=== PATIENT | female | born 1940 | race African-American/Black ===

== ENCOUNTER 2020-09-26 18:51 | Inpatient (IN) | payer OTHER ==
[2020-09-26] MEDS ORDERED: ALBUTEROL 2.5 MG/3 ML NEB SOL ONE (19:44)
[2020-09-26] MEDS: ALBUTEROL 2.5 MG/3 ML NEB SOL NEB SCH (19:45)
--- NOTE | 2020-09-26 20:37 | HP ---
Date of Admission: 09/26/2020 Chief Complaint: Feeling weak, tired, and short of breath. History Of Present Illness: This is an 80-year-old pleasant female patient, who was brought into my office earlier today by family member and the patient has history of asthma. She recently saw Dr. Cooper and he started her on Trelegy inhaler, which she has not started using it and today when she saw me at office, she informed me she did not know how to use it, so I did teach her actually how to use this inhaler and advised her to rinse mouth with water after using it. In fact, she used her first dose of this inhaler at the office today. At office today, her blood pressure was on the low side and she was instructed to discontinue her valsartan and not to take any antihypertensive medication today. We will start rest of the blood pressure medication as of tomorrow, but not to take valsartan anymore. She was leaving office. While she was walking, she felt weak and tired, and then when she went home, her condition got worse. With any attempt to get up or move around, she was very weak, tired, short of breath to the extent that family was really concerned about worsening symptoms, so I was contacted and decision was made to admit her to hospital for further evaluation and management of this problem. I did go back to hospital to check on her while she was in the emergency room this evening. No new complaints reported after she left my office today. No vomiting. No diarrhea. No fever or chills. Allergies: NO KNOWN ALLERGIES. Medications: ProAir inhaler 2 puffs 4 times a day as needed, Trelegy inhaler 1 puff by mouth daily, Xarelto 20 mg p.o. daily in the evening, atorvastatin 20 mg p.o. at bedtime, amlodipine 5 mg 2 times a day, carvedilol 3.125 mg p.o. 2 times a day, escitalopram 10 mg p.o. daily, famotidine 40 mg at bedtime, and Fosamax 70 mg p.o. once a week, Caltrate plus D 1 tablet by mouth 2 times a day. Review of Systems: Cardiovascular: As mentioned above. Respiratory: As mentioned above. All other systems reviewed and negative. Past Medical History: Significant for asthma, hypertension, atrial fibrillation, hyperlipidemia, gastroesophageal reflux disease, osteoarthritis, osteopenia. Past Surgical History: Cholecystectomy and tubal ligation. Family History: Father , details unknown. Mother , had lung cancer. Daughter with history of breast cancer. Social History: Negative for smoking or alcohol use. Physical Examination: Vital Signs: Earlier today at our office, blood pressure 93/59, pulse 61, respiratory rate 16, temperature 97, weight 154.4 pounds, height 65 inches. General: Awake, alert, oriented, not in distress. HEENT: Head atraumatic, normocephalic. Conjunctivae nonerythematous. Sclerae white. Mouth, no thrush or edema noted. Ears/Nose, no mass, lesion, discharge noted. Neck: Supple. No JVD, lymph nodes, bruit, thyromegaly noted. Lungs: Bilateral good equal air entry. Clear to auscultation. No rhonchi. No rales. Heart: Normal heart sounds. Presence of systolic murmur. No gallop. Abdomen: Soft. Bowel sounds normal. No guarding, rigidity, tenderness, mass, hepatosplenomegaly, distention, or bruit noted. Extremities: No leg edema. No calf tenderness. Skin: No rash, ulcer, cellulitis. Lymphatics: No lymph node enlargement in neck, supraclavicular, infraclavicular region. Neuro: No focal neurological deficit. Chest: Unremarkable. External Genitalia: Deferred. Rectal: Deferred. Laboratory Data: WBC 6.6, hemoglobin 4.2, platelets 242. Sodium 145, potassium 3.9, chloride 113, bicarb 27, BUN 34, creatinine 1.15, glucose 97. Liver function tests unremarkable. Chest x-ray shows no acute changes. Impression: 1. Severe anemia. 2. Dyspnea. 3. Hypertension. 4. Moderate persistent asthma. 5. Chronic atrial fibrillation. 6. Chronic anticoagulation therapy. 7. Hyperlipidemia. 8. Gastroesophageal reflux disease. 9. Osteoarthritis, multiple sites. 10. Osteopenia. Plan: We will admit the patient to hospital for further evaluation and management of this problem. The patient is appropriate for inpatient and is expected to spend 2 midnights in hospital. Her hemoglobin was 12.2 on 08/14/2020 and she has not reported any signs or symptoms of GI bleeding. Will get stool occult test and she will need EGD and colonoscopy to look for underlying cause of this severe anemia as I suspect it is due to GI bleeding and very likely upper GI bleeding. Her Xarelto will need to discontinued from now on. Home medications will be continued per order. We will not give any antihypertensive medication at this point. We will plan to get an echocardiogram with Doppler tomorrow. We will give albuterol nebulizer treatment, and details and plan of treatment discussed with the patient. RENETTA/CRISTIN Voice ID: [id number] IMER
--- NOTE | 2020-09-26 20:57 | RAD REPORT ---
EXAM DESCRIPTION: RAD - Chest Single View - 09/26/2020 8:08 pm CLINICAL HISTORY: dyspnea Chest pain. COMPARISON: Chest Single View dated 09/16/2016; CHEST PA AND LAT 2 VIEW dated 11/30/2015; CHEST PA AN D LAT 2 VIEW dated 05/11/2015; CHEST SINGLE VIEW dated 09/11/2014 FINDINGS: Portable technique limits examination quality. The lungs are grossly clear. The heart is normal in size. No displaced fractures. IMPRESSION: No acute intrathoracic process suspected.
[2020-09-26] MEDS ORDERED: FAMOTIDINE 20 MG TAB PO SCH (21:00)
--- NOTE | 2020-09-26 21:44 | ER ---
Nurse's Notes [facility] Name: Jo Dos Santos Age: 80 yrs Sex: Female : 1940 Arrival Date: 09/26/2020 Time: 18:56 Bed Direct Admit Private MD: Ana Awan C Diagnosis: Dyspnea Presentation: 09/26 21:37 Note this pt is a direct admit from . sg Historical: - Allergies: 21:37 No Known Allergies; sg - PMHx: 21:37 DVT; GERD; Hypertension; High Cholesterol; sg - PSHx: 21:37 Tubal ligation; sg Assessment: 19:40 Reassessment: pt refusing COVID 19 test at this time. pt family at bedside educating sg and encouraging the patient for COVID swab and admission, pt continues to refuse. 19:58 Reassessment: pt continues to refuse COVID 19 swab at this time, pt states having been sg lied to by family members for the testing. pt educated on importance of COVID test for admission. pt allows me to swab her at this time. 20:15 Reassessment: pt refusing lab draw and IV start for direct admission. pt states " you sg done that swab, but you aint coming at me with no needles young man." pt refuses blood draw until admission. 21:34 Reassessment: negative covid per [place] outside lab. sg 21:36 Reassessment: pt and pt family updated on COVID swabs, awaiting a bed assignment at this time per Tamika RIVER. Vital Signs: 19:16 BP 156 / 80; Pulse 77; Resp 16; Pulse Ox 96% on R/A; sg ED Course: 18:56 Patient arrived in ED. as 18:56 Ana Awan MD is Private Physician. as 19:58 COVID swab sent to lab. sg 21:42 Ana Awan MD is Hospitalizing Provider. sg Administered Medications: No medications were administered Outcome: 21:42 Decision to Hospitalize by Provider. sg 22:00 Admitted to Tele accompanied by tech, family with patient, via wheelchair, room 204, sg with chart, Report called to Lakia RIVER 22:00 Condition: stable 22:00 Instructed on the need for admit, safety practices, Demonstrated understanding of instructions, follow-up care. 22:09 Patient left the ED. ll2 Signatures: Heri Hernández RN RN Tejal Recinos Lacie RN RN ll2 Corrections: (The following items were deleted from the chart) 21:43 21:37 Note this pt is a direct admit from office westley christy
[2020-09-26 23:04] LABS: Absolute Lymphocytes (CBC) 1.4 K/uL (0.7-4.9); Basophils % 1.6 % (0-1.3); Lymphocytes % 20.6 % (15.3-44.8); MPV 7.8 fL (7.6-11.3); RBC Red Blood Cell Count 1.63 M/uL (3.86-4.86)
[2020-09-26 23:06] LABS: Hematocrit 13.4 % (36.0-45.0)
[2020-09-26 23:13] VITALS: BMI 3523.1
[2020-09-26 23:29] LABS: Albumin 2.9 g/dL (3.4-5.0); Bilirubin Total 0.3 mg/dL (0.2-1.0); Magnesium 1.9 mg/dL (1.8-2.4); Potassium 3.9 mmol/L (3.5-5.1); Thyroid Stimulating Hormone 2.11 uIU/mL (0.360-3.740)
[2020-09-27] MEDS ORDERED: NA CHLORIDE 0.9% 250 ML ONE ×3 (02:06→21:59)
[2020-09-27] MEDS: ALBUTEROL 2.5 MG/3 ML NEB SOL NEB SCH ×4 (02:10→19:30)
[2020-09-27] MEDS ORDERED: ESCITALOPRAM 20 MG TAB PO SCH (09:00)
[2020-09-27] MEDS ORDERED: INFLUENZA VACCINE (for 3y+) 0.5 ML DOSE IMVAC ONE (09:00)
[2020-09-27] MEDS ORDERED: PNEUMOCOCCAL VACCINE 0.5 ML IMVAC ONE (09:00)
[2020-09-27] MEDS: PANTOPRAZOLE INJ 80 MG in NA CHLORIDE 0.9% 250 ML IV SCH ×2 (10:56→21:48)
--- NOTE | 2020-09-27 12:39 | PN ---
Date of Progress Note: 09/27/2020 Subjective: The patient was seen this morning for followup. Her family was with her at bedside. Praveen eubanks denies any new complaints this morning. Upon further questioning today, she does admit that lately she has noted her stool to be dark compared to before and she could not tell me for how long that stafford s been going on actually, but she says it has been lately she has seen that change in color. Denies any bright red blood in stool. No abdominal pain. No nausea. No vomiting. Objective: Vital Signs: Reviewed. HEENT: Unremarkable. Lungs: Clear to auscultation. Heart: Sounds normal. Abdomen: Soft. Bowel sounds normal. No guarding, rigidity, tenderness. Extremities: No leg edema. Impression: 1.Severe anemia. 2.Hypertension. 3.Asthma. Plan: The patient's blood pressure will be monitored and we will consider to restart her antihyperte nsive medication at appropriate time. We will give her IV Protonix drip per order. Stool guaiac joseph t was ordered and nurse was instructed to send all the stools for occult blood test. The patient has received 2 units of packed red cells overnight and CardioNet will be given after I saw her this morn ing. After 3 units of blood transfusion, we will monitor her hemoglobin and then make further decisi on about need for further blood transfusion. On exam, there was no sign of any volume overload. The patient and family were made aware of different possibilities for her underlying anemia problem. Praveen eubanks had normal hemoglobin of 12.2 on August 14, 2020. So approximately 5-6 weeks ago, she had normal hemoglobin, so this is acute blood loss anemia on basis of the way she is describing. Clinically, I strongly believe that this is upper GI bleed and she will need to have endoscopy workup done. We do not have any professor of criminal justice application assistant and I will try to contact our professor of criminal justice to see if donell eubanks of them is available or not and all these details were discussed with family. If that is not possi ble, then after the blood transfusion if her condition is stable, then we will plan to discharge her to go home with elective outpatient endoscopy workup to be done next week. The patient was instructe d not to take any anticoagulation therapy anymore and Xarelto to be discontinued permanently. She wa s also instructed not to take any aspirin, Aleve, Motrin, and ibuprofen, none of those medications. So far, she has remained in sinus rhythm and we will just have to monitor for atrial fibrillation. I f that becomes an issue, then we will have to have a discussion regarding Watchman device. RENETTA/MODL Voice ID: [id number] Report ID: [id number]
--- NOTE | 2020-09-27 14:11 | ECHO ---
HEIGHT: 0 ft 5.5 in WEIGHT: 151 lb 9.6 oz DATE OF STUDY: 09/27/[address]: Jesse Awan MD 2-DIMENSIONAL: YES M.MODE: YES DOPPLER: YES COLOR FLOW: YES TDS: PORTABLE: DEFINITY: BUBBLE STUDY: DIAGNOSIS: ATRIAL FIBRILLATION, DYSPNEA CARDIAC HISTORY: CATHERIZATION: NO SURGERY: NO PROSTHETIC VALVE: NO PACEMAKER: NO MEASUREMENTS (cm) DIASTOLIC (NORMALS) SYSTOLIC (NORMALS) IVSd 0.9 (0.6-1.2) LA Diam 3.0 (1.9-4.0) LVEF 71% LVIDd 4.7 (3.5-5.7) LVIDs 2.8 (2.0-3.5) %FS 41% LVPWd 1.1 (0.6-1.2) Ao Diam 2.6 (2.0-3.7) 2 DIMENSIONAL ASSESSMENT: RIGHT ATRIUM: NORMAL LEFT ATRIUM: NORMAL RIGHT VENTRICLE: NORMAL LEFT VENTRICLE: NORMAL TRICUSPID VALVE: MILD TRICUSPID REGURGITATION MITRAL VALVE: MILD MITRAL REGURGITATION PULMONIC VALVE: NORMAL AORTIC VALVE: NORMAL PERICARDIAL EFFUSION: NONE AORTIC ROOT: NORMAL LEFT VENTRICULAR WALL MOTION: NORMAL DOPPLER/COLOR FLOW: SEE BELOW COMMENTS: NORMAL LEFT VENTRICULAR EJECTION FRACTION 55-60% WITH NORMALWALL MOTION. MILD MITRAL REGURGITATION, MILD MITRAL REGURGITATION. MILD PULMONARY HYPERTENSION WITH RIGHT VENTRICULAR SYSTOLIC PRESSURE OF 40-45 mmHg. TECHNOLOGIST: MARIAJOSE WISEMAN
[2020-09-27] MEDS ORDERED: RIVAROXABAN 20 MG TABLET PO SCH (17:00)
[2020-09-27 18:46] LABS: Hematocrit 20.6 % (36.0-45.0)
[2020-09-27] MEDS ORDERED: POTASSIUM CL SA 10 MEQ TAB PO ONE (20:00)
[2020-09-27] MEDS ORDERED: FUROSEMIDE 20 MG/ 2ML VIAL IV ONE (20:58)
[2020-09-28] MEDS: ALBUTEROL 2.5 MG/3 ML NEB SOL NEB SCH ×3 (00:30→07:39)
[2020-09-28] MEDS ORDERED: NA CHLORIDE 0.9% 250 ML ONE ×2 (00:34→04:31)
[2020-09-28] MEDS ORDERED: EPINEPHRINE/PF 1 MG/ML AMP ONE ×2 (08:37→08:39)
[2020-09-28] MEDS ORDERED: ESCITALOPRAM 10 MG TABLETS PO SCH (09:00)
[2020-09-28] MEDS ORDERED: Ringers Lactate 1,000 ML IV ONE (09:08)
[2020-09-28] MEDS ORDERED: propofoL 200 MG/20 ML VIAL IV ONE ×2 (09:20)
[2020-09-28 09:21] LABS: Absolute Lymphocytes (CBC) 1.6 K/uL (0.7-4.9); Basophils % 0.9 % (0-1.3); Hematocrit 32.9 % (36.0-45.0); Lymphocytes % 18.3 % (15.3-44.8); RBC Red Blood Cell Count 3.85 M/uL (3.86-4.86)
[2020-09-28 09:28] LABS: Potassium 4.1 mmol/L (3.5-5.1)
--- NOTE | 2020-09-28 09:40 | ENDO RPT ---
[address], [address] EGD PROCEDURE REPORT EXAM DATE: 09/28/2020 PATIENT NAME: Jo Dos Santos MR#: [id number] BIRTHDATE: 1940 ATTENDING: Asad Rosas Dr STATUS: inpatient - 7 LITHODUPLICATOR OPERATOR: Lyndsey LOPEZ and Hayes Zapien RN INDICATIONS: The patient is a 80 yr old Female here for an EGD due to anemia (hgb 4.2), and melenic bleeding PROCEDURE PERFORMED: EGD with biopsy MEDICATIONS: Per Anesthesia. TOPICAL ANESTHETIC: none CONSENT: The patient understands the risks and benefits of the procedure and understands that these risks include, but are not limited to: sedation, allergic reaction, infection, perforation and/or bleeding. Alternative means of evaluation and treatment include, among others: physical exam, x-rays, and/or surgical intervention. The patient elects to proceed with this endoscopic procedure. DESCRIPTION OF PROCEDURE: During intra-op preparation period all mechanical medical equipment was checked for proper function. Hand hygiene and appropriate measures for infection prevention was taken. Procedure, possible complications, and alternatives including but not limited to the possibility of bleeding, perforation, tear, infection, sepsis, need for surgery, need for blood transfusion, and anesthesia related complications were explained to the patient. After the risks, benefits and alternatives of the procedure were thoroughly explained, Informed consent was verified, confirmed and timeout was successfully executed by the treatment team. The patient was placed in the left lateral position. The patient was anesthetized with topical anesthesia. Through the anesthetized oropharyngeal area, the scope was passed without any difficulty. The [id number] ([id number]) endoscope was introduced through the mouth and advanced to the second portion of the duodenum. Retroflexed views revealed a small hiatal hernia. The gastroscope was then slowly withdrawn and removed. A small hiatal hernia was found Retained food was present in the body of the stomach. Mild gastritis was found in the body and the antrum of the stomach. Multiple biopsies were obtained and sent to pathology. ADVERSE EVENTS: There were no complications. IMPRESSIONS: 1. Small hiatal hernia 2. Moderate amount of retained food in the body >> fundus / antrum of the stomach 3. Mild gastritis in the body and the antrum of the stomach, s/p biopsies RECOMMENDATIONS: 1. await biopsy results 2. acid suppression therapy 3. gastric emptying study 4. colonoscopy REPEAT EXAM: Asad Rosas Dr eSigned: Asad Rosas Dr 09/28/2020 9:40 AM cc: Jesse Awan M.D. CPT CODES: ICD9 CODES: PATIENT NAME: Jo Dos Santos MR#: [id number]
[2020-09-28 09:45] VITALS: O2SAT 100
--- NOTE | 2020-09-28 10:14 | PN ---
Date of Progress Note: 09/28/2020 Subjective: The patient was seen this morning for followup. She was sleeping, easily arousable. Denies any complaints. No cough, no shortness of breath. Objective: Vital Signs: Reviewed. HEENT: Unremarkable. Lungs: Clear to auscultation. Heart: Sounds normal. Abdomen: Soft. Bowel sounds normal. No tenderness or distention. Extremities: No leg edema. Impression: 1. Anemia, severe. 2. Asthma. 3. Hypertension. Plan: The patient's hemoglobin after receiving 3 units of blood transfusion was 6.2, so yesterday evening we ordered 3 more units of PRBC blood transfusion and she completed that overnight. 20 mg of Lasix IV x1 dose was given yesterday evening. She does not have any signs, symptoms of any fluid overload. Her morning blood work is pending. We will follow up on that. So, far patient has received 6 units of PRBC blood transfusion. This morning she will get EGD with Dr. Rosas, and depending on the EGD results as well as her blood test results from this morning, decision will be made if the patient can be discharged to go home or will need to keep her in the hospital for another day and all these details were discussed with her today. RENETTA/CRISTIN Voice ID: [id number] Report ID: [id number] MTDD
[2020-09-28] MEDS: PANTOPRAZOLE INJ 80 MG in NA CHLORIDE 0.9% 250 ML IV SCH (10:19)
[2020-09-28 12:00] VITALS: BP 165/77; TEMP 97.9
--- NOTE | 2020-09-29 15:43 | CON ---
Date of Consultation: 09/28/2020 Reason For Consultation: History of anemia hemoglobin 4.2, melena for a week. History Of Present Illness: The patient is an 80-year-old female with history of hy pertension, hyperlipidemia, atrial fibrillation, asthma, and GERD, who presented to the hospital due to feeling weak, tired and short of breath. The patient was found to have a hemoglobin of 4.2, admit nishant to the hospital. Patient states now that she may have had black stools over the past week. She does not seem entirely sure. She has been feeling weak and tired and shortness of breath with some f atigue. She reports the dark stools over the past week. She cannot recall if she has had a colonosc opy or EGD, though her report was that she has had those in the past. Past Medical History: Significant for hypertension, hyperlipidemia, atrial fibrillation, asthma, gas troesophageal reflux disease, osteoarthritis, osteopenia, cholecystectomy, and tubal ligation. Medications: Include ProAir inhaler, Trelegy, Xarelto, atorvastatin, amlodipine, carvedilol, escital opram, famotidine, Fosamax, Caltrate. Allergies: NKDA. Social History: She is , children. No tobacco. Quit 4 years ago. No alcohol. Quit 4 years ago. Family History: Father of unknown causes. Does not seem to know him well. Mother of lung cancer. Daughter has a history of breast cancer. Review of Systems: Patient has melena, shortness of breath, fatigue, weakness, feeling tired. She denies any hematochez ia, coffee-grounds emesis, hematuria, dysuria, polydipsia, hemoptysis, chest pain. She does have brenna rtness of breath. No seizures, syncope, lower extremity edema, muscle aches, joint aches, backaches, currently. Physical Examination: Vital Signs: She is 5 feet 5 inches, 151 pounds. She has a temperature of degrees Fahren heit, pulse 71, respirations 18, blood pressure 119/61, O2 saturation 100%. General: She is a well-nourished, well-developed, elderly female, lying in bed, in no acute distress . HEENT: Normocephalic, atraumatic. Anicteric. Pupils equal, round, and reactive to light. Extraocu lar movements are intact. Oropharynx is clear. Neck: Supple. No masses. Respirations: Clear to auscultation bilaterally. Cardiac: Regular rate and rhythm. No gallops or rubs. Abdomen: Positive bowel sounds. Soft, nontender, nondistended. No hepatosplenomegaly. Extremities: No clubbing, cyanosis, or edema. 2+ pulses. Neuro: Alert and oriented x3. Grossly nonfocal. 5/5 motor strength and sensation to light touch. Laboratory Data: The patient has a COVID-19 PCR test that was negative on September 26. She has a wh ite count of 6.6, hemoglobin of 4.2 on 09/26, hematocrit is 13.4, MCV of 82.2, platelet count 242, __ , lymphocytes 21%, monocytes 7%, eosinophils 1%, basophils 1.6%. On the today, patient has a white count of 8.6, hemoglobin of 10.8 after packed RBC, MCV of 86 and a platelet co unt of 233. The patient has a sodium 143, potassium 4.1 today, chloride 111, bicarb 28, BUN of 19, c reatinine of 0.5, glucose of 92, calcium 8.5, magnesium 2.0, total bilirubin 0.3, AST of 12, ALT 13, alkaline phosphatase 46, total protein 6.0, albumin . Chest x-ray on the revealed no acute intrathoracic process, this was negative. Impression: 1.Anemia hemoglobin of 4.2 with MCV of 82 with fatigue, shortness of breath, weakness. The patient EGD, probably colonoscopy. The patient is unclear when her last colonoscopy was. 2.Melena x1 week. 3.History of hypertension, hyperlipidemia, atrial fibrillation, asthma, gastroesophageal reflux dise ase, osteoarthritis, osteopenia, laparoscopic cholecystectomy, a tubal ligation. Recommendations: 1.Serial H and H, and transfuse as needed. 2.IV fluids. 3. therapy. 4.EGD. Consider colonoscopy in this patient, unknown last colonoscopy. JAYDON/CRISTIN Voice ID: [id number] Report ID: [id number]
--- NOTE | 2020-09-30 11:53 | DS ---
Date of Discharge: 09/28/2020 Disposition: Discharged to go home. Physical Examination: HEENT: Unremarkable. Lungs: Clear to auscultation. Heart: Sounds normal. Abdomen: Soft. Bowel sounds normal. No guarding, rigidity, tenderness, distention. Extremities: No leg edema. Discharge Medications And Instructions: 1. Continue all prior home medication except stop Xarelto. 2. Do not take any aspirin, Aleve, Motrin type of medication. 3. Take ferrous fumarate 324 mg 1 tablet p.o. daily. 4. Take omeprazole 40 mg p.o. daily. 5. Follow up at my office on Friday morning, which is 10/02/2020 at 8 a.m. 6. Follow up with Dr. Rosas next week. Labs And Test Done During This Hospitalization: Chest x-ray showed no acute changes. Initial white count 6.6, hemoglobin 4.2, platelets 242, and the patient received 6 units of blood transfusion during this hospital stay. Last CBC showed white count 8.6, hemoglobin 10.8, platelets 233 and this was on the day of discharge. Initial sodium 145, potassium 3.9, chloride 113, bicarb 27, BUN 34, creatinine 1.15, glucose 97. On day of discharge; sodium 143, potassium 4.1, chloride 111, bicarb 28, BUN 19, creatinine 0.95, glucose 92. Echocardiogram shows normal ejection fraction of 71%, mild mitral regurgitation, mild pulmonary hypertension with right ventricular systolic pressure 40-45 mmHg. Final Diagnoses: 1. Severe anemia, due to acute blood loss. 2. Dyspnea secondary to above. 3. Hypertension. 4. Moderate persistent asthma. 5. Paroxysmal atrial fibrillation. 6. Hyperlipidemia. 7. Gastroesophageal reflux disease. 8. Osteoarthritis, multiple sites. 9. Osteopenia. 10. Gastritis. 11. Hiatal hernia. 12. Rule out gastroparesis. Hospital Course: An 80-year-old female patient admitted to the hospital with feeling tired, weak and short of breath. Please see dictated H and P for more information. The patient has been feeling this way for last 2 to 3 weeks and she saw Dr. Cooper who changed her inhaler and saw Dr. Mathew. No specific cardiac testing has been done so far. She came to see me and at that time as she was leaving the office, she felt weak and was kind of leaning over as she was standing and walking, but did not have any fall. Her systolic blood pressure was around between 90-100 at the office, so we did make some changes in her medications related to blood pressure medications. She had a normal hemoglobin of 12.2 on 08/14/2020. After she went home, her symptoms got worse, family contacted me and decision was made to admit her to the hospital directly for further evaluation and management of this problem and initial hemoglobin came back extremely low. Upon further questioning, patient admitted and lately she had noted some dark stool, but she could not tell exactly when it is start, but now her stool has started to return back to its normal color as she reported. Her symptoms of feeling weak, tired, short of breath started about 2- 3 weeks ago as she reports. Her stool guaiac was negative which was done in the hospital. I believe that she probably had episode of upper GI bleeding about 2- 3 weeks ago that cause this severe anemia. She received total of 6 units of PRBC blood transfusion during this hospital stay and Dr. Rosas, was consulted from [facility] who did EGD on the day of discharge showing gastritis. No evidence of any active bleeding, showed retained food in the stomach and the patient did not have anything to eat or drink after midnight for this EGD. So, we will need to rule out possibility of gastroparesis. It also showed small hiatal hernia. All these details and findings discussed with the patient and her family and she was discharged to go home in stable condition with above- mentioned medication and instruction. Throughout the hospital stay she was on quality assurance monitor body and she did not have any atrial fibrillation. She remained in sinus rhythm. So, what we will probably do is continue to monitor her in the future and if she returns back into atrial fibrillation, then we will have to talk about Watchman device placement, but at this point, probably no necessary intervention except just monitoring to see whether she does go back into atrial fibrillation or not. All the details were discussed with her. RENETTA/MODL Voice ID: [id number] Report ID: [id number] IMER
== END 2020-09-28 12:58 | disposition home or self-care (01) | DRG 378 ==
LOC: ER 18:51 → ERHOLD 18:54 → 2ND 21:45
PROVIDERS: ADMIT Internal Medicine; ATTEND Internal Medicine
PROC: 30233N1 Transfusion of Nonautologous Red Blood Cells into Peripheral Vein, Percutaneous Approach (ICD-10-PCS; 2020-09-28)
PROC: 0DB78ZX Excision of Stomach, Pylorus, Via Natural or Artificial Opening Endoscopic, Diagnostic (ICD-10-PCS; principal; 2020-09-28 09:00)
DX: K29.71 Gastritis, unspecified, with bleeding (principal); D62 Acute posthemorrhagic anemia; K44.9 Diaphragmatic hernia without obstruction or gangrene; I10 Essential (primary) hypertension; K21.9 Gastro-esophageal reflux disease without esophagitis; E78.5 Hyperlipidemia, unspecified; I48.0 Paroxysmal atrial fibrillation; J45.40 Moderate persistent asthma, uncomplicated; K31.84 Gastroparesis; M19.90 Unspecified osteoarthritis, unspecified site; M85.80 Other specified disorders of bone density and structure, unspecified site; Z79.01 Long term (current) use of anticoagulants; Z98.51 Tubal ligation status; Z79.899 Other long term (current) drug therapy; Z90.49 Acquired absence of other specified parts of digestive tract; Z20.828 Contact with and (suspected) exposure to other viral communicable diseases
CPT/HCPCS: 36415; 36430; 71045; 80048; 80053; 82274; 83735; 84443; 85014; 85018; 85025; 86850; 86900; 86901; 88305; 88312; 93306; 94640; C9113; J0171; J1940; J2704; J7050; J7120; P9016; U0003

== ENCOUNTER 2020-12-27 07:08 | Day surgery (SDC) | payer OTHER ==
[2020-12-27] MEDS ORDERED: Ringers Lactate 1,000 ML IV ONE (08:19)
[2020-12-27] MEDS ORDERED: LIDOCAINE 1% MPF 5 ML VIAL ONE (09:08)
[2020-12-27] MEDS ORDERED: propofoL 200 MG/20 ML VIAL IV ONE (09:08)
--- NOTE | 2020-12-27 09:36 | ENDO RPT ---
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 ESTIMATED BLOOD LOSS: None CONSENT: The patient understands the risks and benefits of the procedure and understands that these risks include, but are not limited to: sedation, allergic reaction, infection, perforation and/or bleeding. Alternative means of evaluation and treatment include, among others: physical exam, x-rays, and/or surgical intervention. The patient elects to proceed with this endoscopic procedure. DESCRIPTION OF PROCEDURE: During intra-op preparation period all mechanical medical equipment was checked for proper function. Hand hygiene and appropriate measures for infection prevention was taken. Procedure, possible complications, alternatives including, but not limited to possibility of bleeding, perforation, tear, infection, sepsis, need for surgery, need for blood transfusion, were explained to the patient. After the risks, benefits and alternatives of the procedure were thoroughly explained, Informed consent was verified, confirmed and timeout was successfully executed by the treatment team. The patient was placed in the left lateral position. A digital rectal exam was performed and revealed several skin tags. After appropriate level of anesthesia, the scope was passed. The [id number] ([id number]) and [id number] ([id number]) endoscope was introduced through the anus and advanced to the terminal ileum which was intubated for a short distance. The quality of the prep was good. The instrument was then slowly withdrawn as the colon was fully examined. Scope withdrawal time was 7 minutes. COLON FINDINGS: Moderate sized internal hemorrhoids were found. Retroflexed views revealed medium hemorrhoids. The scope was then completely withdrawn from the patient and the procedure terminated. ADVERSE EVENTS: There were no complications. IMPRESSIONS: 1. Moderate sized internal hemorrhoids 2. Intubation to terminal ileum RECOMMENDATIONS: 1. hemorrhoidal hygiene 2. fiber rich diet 3. EGD RECALL: Colonoscopy not scheduled due to age (80 y.o.). Asad Rosas Dr eSigned: Asad Rosas Dr 12/27/2020 9:36 AM cc: Jesse Awan CPT CODES: ICD9 CODES: 455.9 Residual hemorrhoidal skin tags PATIENT NAME: Dos SantosJo MR#: [id number]
[2020-12-27 10:27] VITALS: TEMP 98.2; O2SAT 100
[2020-12-27 14:02] VITALS: BP 117/67
== END 2020-12-27 10:20 | disposition home or self-care (01) ==
LOC: OR 07:08
PROVIDERS: ATTEND Internal Medicine Gastroenterology
PROC: 0DJD8ZZ Inspection of Lower Intestinal Tract, Via Natural or Artificial Opening Endoscopic (ICD-10-PCS; principal; 2020-12-27 08:45)
DX: D64.9 Anemia, unspecified (principal); K92.1 Melena; K64.8 Other hemorrhoids; J45.909 Unspecified asthma, uncomplicated; I48.91 Unspecified atrial fibrillation; K21.9 Gastro-esophageal reflux disease without esophagitis; E78.5 Hyperlipidemia, unspecified; I10 Essential (primary) hypertension; M19.90 Unspecified osteoarthritis, unspecified site; M81.0 Age-related osteoporosis without current pathological fracture; Z20.822 Contact with and (suspected) exposure to COVID-19
CPT/HCPCS: 44376; U0002; J2704; J7120

== ENCOUNTER 2023-01-06 18:00 | Inpatient (IN) | payer OTHER ==
[2023-01-06 18:51] LABS: SARS-CoV-2 Antigen Rapid Res Negative (Negative)
--- OUTSIDE RECORDS SUMMARY | 2023-01-06 19:38 | XMS REPORT | Continuity of Care Document ---
:1940 Author Organization [facility] t Address [address] [place] [address]. [address] [place] [address] Care Team Providers Name Role Phone Asad Rosas Attending Clinician Unavailable Jesse Awan Admitting Clinician Unavailable Payers Payer Name Policy Type Policy Number Effective Date Expiration Date S ource Problems This patient has no known problems. Allergies, Adverse Reactions, Alerts Allergy Allergy Status Severity Reaction(s) Onset Inactive Treating Comm ents Source Name Type Date Date Clinician No Known DA Active U [facility] 12-05 [facility] 00:00: d 00 [facility] No Known DA Active U [facility] 00 [facility] Medications This patient has no known medications. Procedures This patient has no known procedures. Encounters Start End Encounter Admission Attending Care Care Encounter Source Date/Time Date/Time Type Type Clinicians Facility Department ID 2020-12-05 2020-12-13 Inpatient EL Alison, [facility]O [id number] [facility] 11:08:00 11:08:00 [facility] Results Test Description Test Time Test Comments Results Result Comments Source COVID 19 INHOUSE AG 2020-12-05 17:53:00 Test Item Value Reference Range Interpretation Comme nts COVID 19 INHOUSE AG (test code = NEGATIVE Negative Per senior pastor, negative [id number]) results should be treated aspresumptive a nd, if inconsistent wi th clinical signs andsymptoms or necessary for patient managem ent, should betested with a n alternative molecular assay . Negative resultsdo not p reclude SARS-CoV-2 infection and s hould not be usedas the sole basis for patient management deci sions. Negative results should be considered in the context of apatient's recent exposures, hist ory, presence of clinicalsigns a nd symptoms consistent with COVID-19. Spec Comments: PRE OPBASIC METABOLIC [id number] 17:43:00 Test Item Value Reference Range Interpretation Comments SODIUM (test code = NA) 142 mmol/L 134-147 N POTASSIUM (test code = 4.0 mmol/L 3.4-5.0 N K) CHLORIDE (test code = 110 mmol/L 100-108 H CL) CARBON DIOXIDE (test 34 mmol/L 21-32 H code = CO2) ANION GAP (test code = -2.0 GAP calc 4.0-15.0 L GAP) GLUCOSE (test code = 98 MG/DL 70-110 N GLU) BLOOD UREA NITROGEN 21 MG/DL 7-18 H (test code = BUN) GLOMERULAR FILTRATION >=60 max estimate >60 RATE (test code = GFR) estGFR CREATININE (test code = 1.0 MG/DL 0.6-1.0 N CREAT) CALCIUM (test code = CA) 8.8 MG/DL 8.5-10.1 N CBC W/AUTO [id number] 17:28:00 Test Item Value Reference Range Interpretation Comments WHITE BLOOD CELL (test code = 6.6 K/mm3 3.5-11.0 N WBC) RED BLOOD CELL (test code = 4.65 M/mm3 4.70-6.10 L RBC) HEMOGLOBIN (test code = HGB) 12.3 G/DL 10.4-14.9 N HEMATOCRIT (test code = HCT) 40.1 % 31.5-44.1 N MEAN CELL VOLUME (test code = 86.2 Fl 84.5-98.6 N MCV) MEAN CELL HGB (test code = MCH) 26.5 pg 27.0-34.2 L MEAN CELL HGB CONCETRATION 30.7 G/DL 31.5-34.0 L (test code = MCHC) RED CELL DISTRIBUTION WIDTH 14.0 SD 11.5-14.5 N (test code = RDW) PLATELET COUNT (test code = 185 K/mm3 150-450 N PLT) MEAN PLATELET VOLUME (test code 9.80 fL 7.0-10.5 N = MPV) NEUTROPHIL % (test code = NT%) 71.0 % 40-76 N IMMATURE GRANULOCYTE % (test 0.3 % 0.0-5.0 N code = IG%) LYMPHOCYTE % (test code = LY%) 17.3 % 20.5-51.1 L MONOCYTE % (test code = MO%) 7.6 % 1.7-9.3 N EOSINOPHIL % (test code = EO%) 3.2 % 0.0-6.0 N BASOPHIL % (test code = BA%) 0.6 % 0.0-2.0 N NUCLEATED RBC % (test code = 0.0 /100WBC% 0.0-1.0 N NRBC%) NEUTROPHIL # (test code = NT#) 4.7 K/mm3 1.8-7.6 N IMMATURE GRANULOCYTE # (test 0.02 x10 3/uL 0.00-0.03 N code = IG#) LYMPHOCYTE # (test code = LY#) 1.1 K/mm3 0.6-3.2 N MONOCYTE # (test code = MO#) 0.5 K/mm3 0.3-1.1 N EOSINOPHIL # (test code = EO#) 0.2 K/mm3 0.0-0.4 N BASOPHIL # (test code = BA#) 0.0 K/mm3 0.0-0.1 N NUCLEATED RBC # (test code = 0.0 K/mm3 0.0-0.1 N NRBC#) MANUAL DIFF REQUIRED (test code NO DIFF/SCN CRITERIA = MDIFF)
[2023-01-06] MEDS ORDERED: AZITHROMYCIN IV 500 MG in NA CHLORIDE 0.9% 250 ML IVPB ONE (19:59)
[2023-01-06 20:41] LABS: Hematocrit 39.5 % (36.0-45.0); Lymphocytes % 20.6 % (15.3-44.8); MCV 84.9 fL (80-100); MPV 8.6 fL (7.6-11.3); RBC Red Blood Cell Count 4.64 M/uL (3.86-4.86)
[2023-01-06 20:56] LABS: Bilirubin Total 0.6 mg/dL (0.2-1.0); Magnesium 2.2 mg/dL (1.6-2.4); Potassium 3.8 mmol/L (3.5-5.1); Protein, Total 7.6 g/dL (6.4-8.2); Thyroid Stimulating Hormone 2.36 uIU/mL (0.358-3.740)
[2023-01-06 21:06] VITALS: BMI 29.2
--- NOTE | 2023-01-06 21:30 | RAD REPORT ---
EXAM DESCRIPTION: CT - Head Brain Wo Cont - 01/06/2023 9:21 pm CLINICAL HISTORY: Alteration of awareness/confusion COMPARISON: 2020 TECHNIQUE: Computed axial tomography of the head was obtained. IV contrast was not requested. All CT scans are performed using dose optimization technique as appropriate and may include automated exposure control or mA/KV adjustment according to patient size. FINDINGS: An intracranial bleed is not seen The ventricles are normal in caliber No extra-axial fluid collection is noted. Mild low-density areas within periventricular, deep and subcortical white matter likely represent isc hemic changes secondary to small vessel disease. Fluid within the sinuses/ mastoids is not seen. IMPRESSION: No acute intracranial abnormality is seen If patient's symptoms persist MRI of the brain would be recommended
[2023-01-06] MEDS: METHYLPREDNISOLONE 40 MG INJ IV SCH (21:33)
--- NOTE | 2023-01-06 21:34 | RAD REPORT ---
EXAM DESCRIPTION: Roxi Escobedo (2 Views)01/06/2023 9:18 pm CLINICAL HISTORY: Asthma exacerbation COMPARISON: 2019 FINDINGS: Lungs are mildly moderately hyperaerated The lungs appear clear of acute infiltrate. The heart is normal size IMPRESSION: No acute abnormalities displayed
[2023-01-06] MEDS: IPRATROPIUM BROM 0.5MG/2.5ML NEB SCH (21:35)
[2023-01-06] MEDS: ALBUTEROL 2.5 MG/3 ML NEB SOL NEB SCH (21:35)
[2023-01-06] MEDS: AMLODIPINE 5 MG TAB PO SCH (21:49)
[2023-01-06] MEDS: carvediloL 3.125 MG TAB PO SCH (21:50)
[2023-01-06] MEDS: GABAPENTIN 300 MG CAP PO SCH (22:30)
[2023-01-06] MEDS: ATORVASTATIN 20 MG TAB PO SCH (22:30)
[2023-01-07] MEDS: METHYLPREDNISOLONE 40 MG INJ IV SCH ×3 (01:33→17:30)
[2023-01-07] MEDS: IPRATROPIUM BROM 0.5MG/2.5ML NEB SCH ×4 (01:55→20:45)
[2023-01-07] MEDS: ALBUTEROL 2.5 MG/3 ML NEB SOL NEB SCH ×4 (01:55→20:45)
[2023-01-07] MEDS ORDERED: HOME MED 1 EA UNK (Omeprazole [Prilosec] 40 MG Capsule.Dr) PO SCH (07:30)
[2023-01-07] MEDS ORDERED: PNEUMOCOCCAL VACCINE 0.5 ML IMVAC ONE (08:00)
[2023-01-07] MEDS ORDERED: INFLUENZA VACCINE (for 6+ mo) 0.5 ML DOSE IMVAC ONE (08:00)
[2023-01-07] MEDS: ENOXAPARIN 40 MG/0.4 ML SQ SCH (08:47)
[2023-01-07] MEDS: ESCITALOPRAM 20 MG TAB PO SCH (08:47)
[2023-01-07] MEDS: AMLODIPINE 5 MG TAB PO SCH ×2 (08:48→21:15)
[2023-01-07] MEDS: carvediloL 3.125 MG TAB PO SCH ×2 (08:48→21:15)
[2023-01-07] MEDS: PANTOPRAZOLE 40MG TABLET PO SCH (08:48)
--- NOTE | 2023-01-07 12:49 | HP ---
Date of Admission: 01/06/2023 Chief Complaint: Altered mental status, cough, congestion, and wheezing. History Of Present Illness: This is an 82-year-old female patient, came into office today as she was brought in by her daughter with above-mentioned problems. Last week on Friday, the patient's grandd juanita notified me that the patient was having some altered mental status and was concerned about po ssibility of urinary tract infection and her urinalysis had shown trace leukocyte esterase and she wa s started on empiric antibiotic, nitrofurantoin. Urine culture was sent prior to starting antibiotic s. Today, urine culture results came back negative and after the patient was brought into office by family member with above-mentioned complaints, after she was evaluated at office, we noted that her o xygen saturation was 85% on room air. The patient appeared weaker than normal and just did not look like her normal self when I saw her in the office. With all this to gather, decision was made to adm it her to hospital. Allergies: NO KNOWN ALLERGIES. Medications: Albuterol inhaler 2 puffs 4 times a day as needed, Fosamax 70 mg once a week, amlodipin e 5 mg 2 times a day, atorvastatin 20 mg at bedtime, Caltrate plus D 1 tablet 2 times a day, carvedil ol 3.125 mg 2 times a day, escitalopram 10 mg daily, famotidine 40 mg daily at bedtime, Trelegy inhal er 1 puff daily, gabapentin 300 mg daily at bedtime, omeprazole 40 mg daily in morning 30 minutes bef ore breakfast. Review of Systems: Respiratory: As mentioned above. Significant for cough, congestion, and wheezing. 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 All other systems reviewed and negative. Past Medical History: Significant for moderate persistent asthma, hypertension, hyperlipidemia, yue roesophageal reflux disease, osteoarthritis at multiple sites, osteoporosis. She had atrial fibrilla tion in the past and has remained in normal sinus rhythm for very long time. Past Surgical History: Significant for cholecystectomy and tubal ligation. Family History: Mother of lung cancer. Social History: Negative for smoking and alcohol use. Physical Examination: Vital Signs: At office when I saw her today; blood pressure 147/74, pulse 57, temperature 97.6, resp iratory rate 18, weight 176.6 pounds, height 65 inches. Oxygen saturation 85% on room air. General: Awake, alert, oriented, not in distress. HEENT: Head atraumatic, normocephalic. Conjunctivae nonerythematous. Sclerae white. Mouth, no thr ush or edema noted. Ears/Nose, no mass, lesion, discharge noted. Neck: Supple. No JVD, lymph nodes, bruit, thyromegaly noted. Lungs: Bilateral good equal air entry. Presence of wheezing noted and scattered all over both lung nugent. The patient not using any accessory muscles of respiration. Heart: Normal heart sounds, no murmur or gallop. Abdomen: Soft, bowel sounds normal. No guarding, rigidity, tenderness, mass, hepatosplenomegaly, dis tention, or bruit noted. Extremities: No leg edema. No calf tenderness. Skin: No rash, ulcer, cellulitis. Lymphatics: No lymph node enlargement in neck, supraclavicular, infraclavicular region. Neuro: No focal neurological deficit. Chest: Unremarkable. External Genitalia: Deferred. Rectal: Deferred. Laboratory Data: Her white count 4.8, hemoglobin 12.9, platelets 156. Sodium 141, potassium 3.8, ch loride 102, bicarb 36, BUN 14, creatinine 1.06, glucose 146. Liver function tests unremarkable. TSH 2.36. COVID-19 test negative. Chest x-ray, no acute cardiopulmonary changes. CAT scan of the head , no acute intracranial changes. Impression: 1.Acute exacerbation of moderate persistent asthma. 2.Acute respiratory failure with hypoxia. 3.Metabolic encephalopathy secondary to above. 4.Hypertension. 5.Hyperlipidemia. 6.Osteoporosis. 7.Osteoarthritis, multiple sites. 8.Gastroesophageal reflux disease. Plan: We will admit the patient to hospital for further evaluation and management of this problem. The patient is appropriate for inpatient and is expected to spend 2 midnights in hospital. For her a cute exacerbation of moderate persistent asthma, we will go ahead and treat it with nebulizer treatme nt using albuterol and Atrovent, start IV steroid, Solu-Medrol 40 mg every 8 hours, and start using a ntibiotic azithromycin per order. We will give 500 mg IV x1 dose today and 250 mg IV daily starting tomorrow. For her acute respiratory failure with hypoxia, she will need oxygen replacement therapy a t present time. We will start her on 2 L/minute nasal cannula oxygen and once her condition improves , hopefully she will not require any more oxygen. For hypertension, continue her antihypertensive me dication per order, hold antihypertensive medication if systolic blood pressure less than 130. For h yperlipidemia, continue her statin therapy which is atorvastatin 20 mg daily at bedtime. For her gas troesophageal reflux disease, we will continue her famotidine and omeprazole. DVT prophylaxis will b e given using Lovenox 40 mg subcutaneous injection daily. We will see her tomorrow morning for olga wumarkus. Details and plan of treatment discussed with the patient and her family members. RENETTA/MODL Voice ID: [id number]
--- NOTE | 2023-01-07 17:37 | RAD REPORT ---
EXAM DESCRIPTION: MRI - Brain W/Wo Cont - 01/07/2023 5:19 pm CLINICAL HISTORY: confusion Headache, drowsiness, alteration of awareness COMPARISON: Head Brain Wo Cont dated 01/06/2023 TECHNIQUE: Multi-sequence, multiplanar MR imaging of the brain was performed with contrast. FINDINGS: No intracranial hemorrhage, hydrocephalus, or extra-axial fluid collection.Moderate conflu ent T2/FLAIR hyperintensity in the periventricular and deep white matter is present compatible with c hronic microvascular ischemic changes. No edema or shift of midline structures. No intracranial mass. DWI is negative for acute CVA. The midline structures are normally formed. Mastoid air cells and paranasal sinuses are clear. Post-contrast images show no abnormal enhancement to suggest tumor or infection. IMPRESSION: Negative for acute CVA or other acute intracranial process. No pathologic post-contrast enhancement suspected.
[2023-01-07] MEDS ORDERED: AZITHROMYCIN IV 250 MG in NA CHLORIDE 0.9% 250 ML IVPB SCH (20:00)
--- NOTE | 2023-01-07 20:14 | PN ---
Date of Progress Note: 01/07/2023 Subjective: The patient was seen this morning for followup. She was sleeping. Her daughter was wit h her at bedside. The patient had altered mental status. This morning when I saw her, she did not a nswer any questions. She woke up, but did not communicate with me and then she closed her eyes and s he kept on sleeping during my today's morning visit. Daughter has reported some confusion lately and that has been going on for some time as she reports, but I am definitely concerned about underlying problem with dementia and obviously this current hospitalization might make those dementia symptoms w orse. Physical Examination: Vital Signs: Reviewed. This morning; temperature 97.2, pulse 55, respiratory rate 18, blood pressur e 123/62, oxygen saturation 99% on 2 L nasal cannula. HEENT: Unremarkable. Lungs: Clear to auscultation. Heart: Sounds normal. Abdomen: Soft. Bowel sounds normal. No guarding, rigidity, tenderness, distention. Extremities: No leg edema. Impression: 1.Acute exacerbation of moderate persistent asthma. 2.Hypertension. 3.Hyperlipidemia. 4.Dementia. Plan: We will go ahead and continue current oxygen replacement therapy, steroids, antibiotics. Cont inue current statin therapy for hyperlipidemia and antihypertensive medication per order. We will co nsult Physical Therapy and consult neurologist, Dr. Serrano. DVT prophylaxis will be continued using Lovenox. I will see her tomorrow for followup. RENETTA/MODL Voice ID: [id number] Report ID: [id number]
[2023-01-07] MEDS ORDERED: FAMOTIDINE 20 MG TAB PO SCH (21:00)
[2023-01-07] MEDS ORDERED: POTASSIUM CL SA 10 MEQ TAB PO ONE (21:00)
[2023-01-07] MEDS: GABAPENTIN 300 MG CAP PO SCH (21:15)
[2023-01-07] MEDS: ATORVASTATIN 20 MG TAB PO SCH (21:15)
[2023-01-08] MEDS: METHYLPREDNISOLONE 40 MG INJ IV SCH ×3 (02:16→17:00)
[2023-01-08] MEDS: ALBUTEROL 2.5 MG/3 ML NEB SOL NEB SCH ×3 (02:20→14:10)
[2023-01-08] MEDS: IPRATROPIUM BROM 0.5MG/2.5ML NEB SCH ×3 (02:20→14:10)
[2023-01-08 05:57] LABS: Potassium 4.5 mmol/L (3.5-5.1)
[2023-01-08 09:01] VITALS: O2SAT 92
--- NOTE | 2023-01-08 09:19 | RAD REPORT ---
EXAM DESCRIPTION: CT - Chest For Pe Angio - 01/08/2023 8:47 am CLINICAL HISTORY: Chest pain. hypoxia, rule out PE COMPARISON: THORAX WO CONTRAST dated 12/22/2015 TECHNIQUE: CT angiogram of the pulmonary arteries was performed with MIP. All CT scans are performed using dose optimization technique as appropriate and may include automated exposure control or mA/KV adjustment according to patient size. FINDINGS: No evidence of pulmonary thromboembolism. No acute aortic finding demonstrated. Small spiculated opacity in the left upper lobe laterally measuring about 10-12 mm. Mild linear opaci ty is seen in both bases posteriorly. No focal consolidation typical of pneumonia. No significant pericardial or pleural fluid. No concerning bony finding. IMPRESSION: No evidence of pulmonary thromboembolism. Small spiculated nodularity in the left apex warrants follow-up CT chest in 3-6 months for surveillan ce.
[2023-01-08] MEDS: PANTOPRAZOLE 40MG TABLET PO SCH (09:24)
[2023-01-08] MEDS: carvediloL 3.125 MG TAB PO SCH (09:24)
[2023-01-08] MEDS: ENOXAPARIN 40 MG/0.4 ML SQ SCH (09:24)
[2023-01-08] MEDS: ESCITALOPRAM 20 MG TAB PO SCH (09:24)
[2023-01-08] MEDS: AMLODIPINE 5 MG TAB PO SCH (09:24)
--- NOTE | 2023-01-08 11:35 | CON ---
Reason For Consultation: Consultation called because of altered mental status and evaluation of shandra ntia. History Of Present Illness: Ms. Dos Santos is an 82-year-old patient whom I have seen in clinic, 17 jessica hs ago for dementia. She has a 4-year history of progressive cognitive impairment. The patient's da ughter was in the room and the patient was getting an EEG done. Her memory loss, difficulty keeping up with words, slots, conversations, and activities such as forgetting the stove on and carrying out ordinary activities. She did live in her own home, but because of difficulty with progressive cognit mariana impairment, has daughter with her. She comes into [facility] with cough, congestion, wh eezing, and worsening cognitive functioning. Prior to coming to the hospital, her dementia workup di d include a CT scan of the head as she was very claustrophobic and refused MRI showing moderate small -vessel ischemic disease with diffuse cerebral atrophy. The patient did have an MRI at this visit th at showed disease with confluent T2 and FLAIR hyperintensities in the periventricular white matter co mpatible with the chronic small-vessel ischemic disease. The patient does not have any acute ischemi c or hemorrhagic stroke. An EEG was done and is to be interpreted. The patient did not have focal f indings such as face, arm, or leg numbness or weakness. Past Medical History: Hypertension, asthma, dyslipidemia, GE reflux, osteoarthritis, marked vitamin D deficiency, which was found in 2020 on blood work for dementia, atrial fibrillation. Allergies: NO KNOWN DRUG ALLERGIES. Family History: Mother of lung cancer. Past Surgical History: Cholecystectomy, tubal ligation. Medications: Albuterol nebulizer 2.5 mg every 6 hours as needed, Norvasc 5 mg twice daily, Lipitor 2 0 mg at bedtime, azithromycin 250 mg daily, Coreg 3.125 mg twice daily, Lovenox 40 mg subcutaneously daily, Lexapro 10 mg daily, Pepcid 40 mg at bedtime, gabapentin 300 mg at bedtime, Atrovent 0.5 mg ne bulized every 6 hours, Pantoprazole 40 mg daily, potassium 20 mEq daily, Solu-Medrol 40 mg IV every 8 hours. Review of Systems: Through the patient and her daughter, she denies any myalgias, arthralgias, rash, headache, weight ch mónica. She does have cognitive issues, shortness of breath, and confusion as noted. No focal deficit s in face, arm, or leg. Physical Examination: Vital Signs: Blood pressure 122/69, pulse 60, respiratory rate 15, temperature 97.1, oxygen saturati on 94% on room air. Ms. Dos Santos is having an EEG done. HEENT: She appears normocephalic, atraumatic. Sclerae anicteric. Oropharynx is pink and moist. Neck: Supple. Chest: Clear with decreased sounds. Heart: Irregularly irregular. Abdomen: Soft. Extremities: Show no clubbing, cyanosis, or edema. Neurological: She is alert and oriented to person, situation. She does follow simple commands witho ut difficulty. Her cranial nerve. Her mini-mental status examination task is 20/30. She was unable to do serial 7's, could not recall 3 words after 3 minutes. She was able to identify appropriately and not exactly aware of the date. Cranial nerves, no focal deficits on 2 through 12. Motor exam, n o focal weakness upper and lower extremities. Coordination intact in upper and lower extremities. S ensation shows stocking-glove loss light touch, temperature, depressed reflexes. Laboratory Studies: White blood cell count 4.8, and hemoglobin and hematocrit normal at 12.9 and 39. 5, platelets 156. Chemistries: Her creatinine is slightly elevated at 1.06 today. On 09/11/2014, i t was 1.09. Her carbon dioxide is 36 today and on 09/11/2014, it was 32. Magnesium normal at 2.2, c alcium normal at 8.8. TSH normal at 2.36. COVID-19 test is negative. Chest x-ray shows no abnormal ities. Lungs are clear. Assessment: Ms. Dos Santos is an 82-year-old patient who was seen in clinic about 17 months ago for mode rate dementia. Her Toni cognitive assessment test score in clinic on 08/27/2021 was 16/30. She could not recall 5 words after 5 minutes. Her workup at that time showed a low vitamin D level of 10 . 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 The rest of her dementia labs were essentially unremarkable . She was not prescribed medications for cognitive impairment and did not return for followup visit in clinic. Plan: 1.Consider Namenda or donepezil 5 mg daily. 2.Vitamin D3 5000 international units daily. 3.Speech therapy for cognitive exercises and instruction. 4.We will follow the patient once the EEG is evaluated. MAGO/CRISTIN Voice ID: [id number] Report ID: [id number]
[2023-01-08 14:16] VITALS: TEMP 97
[2023-01-08 16:33] VITALS: BP 148/79
--- NOTE | 2023-01-09 07:35 | DS ---
Date of Discharge: 01/08/2023 Disposition: Discharged to go home. Physical Examination: HEENT: Unremarkable. Lungs: Clear to auscultation. No wheezing, no rales. Heart: Sounds normal. Abdomen: Soft. Bowel sounds normal. No guarding, rigidity, tenderness, or distention. Extremities: No leg edema. Laboratory Data: White count 4.8, hemoglobin 12.9, platelets 156. Sodium 141, potassium 3.8, chlori de 102, bicarb 36, BUN 14, creatinine 1.06, glucose 146. Liver function tests unremarkable. TSH 2.3 6. Today; sodium 141, potassium 4.5, chloride 104, bicarb 36, BUN 17, creatinine 0.92, glucose 127. Discharge Diagnoses: 1.Acute exacerbation of moderate persistent asthma. 2.Chronic respiratory failure with hypoxia, with acute exacerbation. 3.Metabolic encephalopathy secondary to above. 4.Left lung mass. 5.Hypertension. 6.Hyperlipidemia. 7.Osteoporosis. 8.Osteoarthritis, multiple sites. 9.Gastroesophageal reflux disease. Hospital Course: An 82-year-old pleasant female patient came into office, and after she was evaluate d, she was admitted to the hospital. The patient was having cough, congestion, some wheezing, and al tered mental status. Please see dictated H and P for more information. After patient was evaluated at the office, decision was made to admit her to the hospital. Her COVID-19 test negative. The kiarra ent's oxygen saturation at office was 85% on room air. After she came into the hospital, she was sta rted on oxygen replacement therapy, nebulizer treatment, IV steroid, and IV antibiotic, which is azit hromycin. Chest x-ray was negative for any pneumonia. Overall, her wheezing has improved. We did t ry to stop her oxygen and her oxygen saturation at rest was 90%, but with any attempt to walk in the room, her oxygen saturation dropped down to 85%. So with that in mind, decision was made to arrange for home oxygen therapy and once this was arranged, the patient was discharged to go home today in st able condition. Her CT scan of the chest per PE protocol done today was negative for pulmonary embol ism, but it did show a spiculated mass in the left lung, approximately 1.1 cm in size. This is a new finding. The patient does have prior history of smoking, so at this point, we need to rule out any possibility of lung cancer and on outpatient basis we will go ahead and refer her to [facility] for further evaluation of this problem. Neurology consultation was obtained from Dr. Serrano and his co nsultation is appreciated. He notes that he had evaluated the patient on outpatient basis in 2020 an d at that time, she had moderate dementia and he is recommending for the patient to start donepezil o r memantine. EEG was done yesterday, result pending. CAT scan of the brain was negative at the time of admission and MRI of the brain was done yesterday, which was negative for any acute changes. Discharge Medications And Instructions: 1.Continue all prior home medications. 2.Take new medications as below: a.Prednisone 10 mg take 2 tablets daily for 4 days, then 1 tablet daily for 4 days, then half tablet daily for 4 days, then stop. b.Azithromycin 250 mg take 1 tablet by mouth daily for 3 days. c.Donepezil 5 mg p.o. daily. 3.Follow up at my office in 2 weeks. 4[address]Follow [address] Dr. Serrano in 2 weeks. 5.Use oxygen 2 L/minute nasal cannula all the time. RENETTA/MODL Voice ID: [id number] Report ID: [id number]
--- NOTE | 2023-01-10 07:25 | EEG ---
CHART: [id number] TEST ID#: [id number] DATE OF STUDY: 01-07-2023 THE EEG WAS RECORDED PORTABLE IN THE PATIENT'S ROOM ON A 17 CHANNEL MACHINE. ELECTRODES WERE APPLIED IN THE USUAL MANNER USING THE INTERNATIONAL 10-20 SYSTEM. THE WAKING BACKGROUND RHYTHM IN THIS RECORD CONSISTS OF FAIRLY WELL DEVELOPED AND FAIRLY WELL ORGANIZED WAVES OF 7 HZ., IN A WIDE DISTRIBUTION WHICH ATTENUATE POORLY WITH EYE OPENING. LOW-VOLTAGE 15-18 HZ ACTIVITY IS EXPRESSED IN THE FRONTAL REGIONS. THERE ARE NO FOCAL OR LATERALIZING FEATURES. NO EPILEPTIFORM ACTIVITY APPEARS. SLEEP DID NOT OCCUR. HYPERVENTILATION WAS NOT PERFORMED. PHOTIC STIMULATION PRODUCED NO DRIVING BILATERALLY. IMPRESSION: THIS IS A MILDLY ABNORMAL EEG DUE TO A MILDLY SLOW BACKGROUND. THIS IS A NON-SPECIFIC FINDING, INDICATING THE PRESENCE OF A MILD DIFFUSE DISTURBANCE IN CEREBRAL FUNCTION.
== END 2023-01-08 18:19 | disposition home or self-care (01) | DRG 202 ==
LOC: 2ND 19:35
PROVIDERS: ADMIT Internal Medicine; ATTEND Internal Medicine
DX: J45.41 Moderate persistent asthma with (acute) exacerbation (principal); G93.41 Metabolic encephalopathy; J96.21 Acute and chronic respiratory failure with hypoxia; I10 Essential (primary) hypertension; E78.5 Hyperlipidemia, unspecified; K21.9 Gastro-esophageal reflux disease without esophagitis; M19.09 Primary osteoarthritis, other specified site; M81.0 Age-related osteoporosis without current pathological fracture; F03.90 Unspecified dementia, unspecified severity, without behavioral disturbance, psychotic disturbance, mood disturbance, and anxiety; R91.8 Other nonspecific abnormal finding of lung field; Z90.49 Acquired absence of other specified parts of digestive tract; Z98.51 Tubal ligation status; Z20.822 Contact with and (suspected) exposure to COVID-19
CPT/HCPCS: 36415; 70450; 70553; 71046; 71275; 80048; 80053; 83735; 84443; 85025; 87811; 94640; 95819; 97116; 97161; 97530; A9577; J0456; J1650; J2920; J7050; J7613; J7644; Q9967

== ENCOUNTER 2023-06-13 10:00 | Day surgery (SDC) | payer OTHER ==
[~2023-06-13 10:00] MED LIST: ATROPINE SULF 1 MG/10 ML SYR IV ONE; FLUMAZENIL 0.1 MG/ML (5 mL VIAL) IV ONE; HYDRALAZINE HCL 20 MG/ML VIAL ONE; LIDOCAINE VISCOUS 2% 10ML ORAL SOLN ONE; METOPROLOL TARTRATE 5 MG/5 ML INJ IV ONE; MIDAZOLAM HCL 5 ML ONE; NA CHLORIDE 0.9% 0 ML ONE; SIMPLE SYRUP 10 ML, LIDOCAINE 2% VISCOUS ORAL 10 ML MM ONE; SIMPLE SYRUP 20 ML, LIDOCAINE 2% VISCOUS ORAL 20 ML MM ONE
[2023-06-13] MEDS ORDERED: NA CHLORIDE 0.9% 500 ML ONE (10:25)
--- NOTE | 2023-06-16 06:40 | TEE ---
TRANSESOPHAGEAL ECHOCARDIOGRAM REPORT CARDIOLOGY DEPARTMENT DATE OF STUDY: 06/13/2023 HEIGHT: 5'5" WEIGHT: 140 lbs DIAGNOSIS: POST WATCHMAN STEWARD/STEWARDESS THIRD COMMENTS: ADALBERTO CARDIAC HISTORY: CATHERIZATION: SURGERY: PROSTHETIC VALVE: PACEMAKER: 2 DIMENSIONAL ASSESSMENT: RIGHT ATRIUM: LEFT ATRIUM: RIGHT VENTRICLE: LEFT VENTRICLE: TRICUSPID VALVE: MITRAL VALVE: PULMONIC VALVE: AORTIC VALVE: PERICARDIAL EFFUSION: AORTIC ROOT: EJECTION FRACTION: LEFT VENTRICULAR WALL MOTION: DOPPLER/COLOR FLOW: COMMENTS: 1. TRANSESOPHAGEAL ECHOCARDIOGRAM PROBE WAS INSERTED, NO DIFFICULTY 2. WATCHMAN DEVICE IS SEATED WELL, NO THROMBUS, NO LEAK. TECHNOLOGIST: ESSENCE GÓMEZ
== END 2023-06-13 13:12 | disposition home or self-care (01) ==
LOC: EKG 10:00
PROVIDERS: ATTEND Internal Medicine
DX: I48.91 Unspecified atrial fibrillation (principal); I10 Essential (primary) hypertension; E78.5 Hyperlipidemia, unspecified; I05.9 Rheumatic mitral valve disease, unspecified; J45.909 Unspecified asthma, uncomplicated; F17.210 Nicotine dependence, cigarettes, uncomplicated; Z98.890 Other specified postprocedural states; Z79.01 Long term (current) use of anticoagulants; Z79.899 Other long term (current) drug therapy
CPT/HCPCS: 93312; J2250; J7040; J0360; J0461

== ENCOUNTER 2025-03-22 21:58 | Inpatient (IN) | payer OTHER ==
--- OUTSIDE RECORDS SUMMARY | 2025-03-22 22:02 | XMS REPORT | Clinical Summary ---
Author Name Unknown Organization Formerly [facility] Address [address] [place] [address] Care Team Providers Care Enrollment Advisor Name Role Phone Ashley Concepcion MD Primary Care Provider [phone] Nikki Reddy MD Unavailable Kam Sharp MD Unavailable [phone] Alyssa Mcrae Unavailable [phone] Allergies No known active allergies Medications * This document contains information received from the source organization and may not represent a complete record from that organization. amLODIPine (NORVASC) 5 mg tablet 1 tablet (5 mg) daily. 3 Active donepezil (ARICEPT) 5 mg tablet TAKE 1 TABLET BY MOUTH EVERY DAY 3 Active escitalopram (LEXAPRO) 10 mg tablet 1 tablet (10 mg) daily. 0 Active famotidine (PEPCID) 40 mg tablet TAKE 1 TABLET BY MOUTH EVERYDAY AT BEDTIME 3 Active gabapentin (NEURONTIN) 300 mg capsule at bedtime. 3 Active omeprazole (PriLOSEC) 40 MG capsule TAKE 1 CAPSULE BY MOUTH DAILY, 30 MINUTES BEFORE BREAKFAST 3 Active albuterol (VENTOLIN HFA,PROAIR HFA) 90 mcg/puff inhalerIndicati ons:Chronic obstructive pulmonary disease, not otherwise specified Inhale 1 puff by mouth every 6 (six) hours as needed for wheezing or shortness of breath. 18 g 3 4 Active fluticasone-ume clidin-vilanter 100-62.5-25 mcg dsdvIndications :Chronic obstructive pulmonary disease, not otherwise specified Inhale 1 puff by mouth daily. 180 each 3 4 Active carvedilol (COREG) 3.125 mg tablet 1 tablet (3.125 mg) twice daily. 0 08/20/20 24 Discontinu ed(Therapy completed) predniSONE (DELTASONE) 10 mg tablet 3 08/20/20 24 Discontinu ed(Therapy completed) ALPRAZolam (Xanax) 0.25 mg tabletIndicatio ns:Solitary pulmonary nodule,Fear of other medical care Take 1 tablet (0.25 mg) by mouth See Admin Instructions. Take 1 tab by mouth prior to CT scan. May repeat once if needed 2 tablet 3 08/20/20 24 Discontinu ed(Therapy completed) rivaroxaban (XARELTO) 20 mg tablet Take 1 tablet (20 mg) by mouth daily. 0 08/20/20 24 Discontinu ed(Therapy completed) fluticasone-ume clidin-vilanter 100-62.5-25 mcg dsdvIndications :Chronic obstructive pulmonary disease, not otherwise specified Inhale 1 puff by mouth daily. 180 each 3 3 04/09/20 24 Discontinu ed(Reorder ) albuterol (VENTOLIN HFA,PROAIR HFA) 90 mcg/puff inhaler Inhale 1 puff by mouth every 6 (six) hours as needed for wheezing or shortness of breath. 04/09/20 24 Discontinu ed(Reorder ) Active Problems Problem Noted Date Diagnosed Date Chest pain on exertion 04/09/2024 Assessment & Plan (04/09/2024 9:50 AM CDT): Intermittent chest pain and tightness with exertion that recovers with rest. Does not occur at rehab. 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 She and her daughter were encouraged to call for follow up with workup to possibly include EKG, Echo and Stress test discussed cardiac risk factors. She knows to seek care at ER if chest pain is persistent or worsening. Physical deconditioning 10/03/2023 Assessment & Plan (04/09/2024 9:47 AM CDT): She is participating in pulmonary rehab. Assessment & Plan (10/03/2023 10:38 AM HOOP DRIVING MACHINE OPERATOR): On 6MWT the patient walked 112m which is significantly less than healthy patients. Per her report she is limited by fatigue and SOB. We will refer to pulmonary rehab close to her home. Multiple nodules of lung 06/09/2023 Assessment & Plan (10/11/2024 12:59 PM HOOP DRIVING MACHINE OPERATOR): RUL and RLL 5mm nodules appear to be stable.Bilateral clustered nodules are stable. She is without new or worsening symptoms.RLL tubular branching nodules slightly increased. There are no nodules which meet criteria for biopsy at this time. There are no symptoms requiring treament. We will monitor with CT scan this has been ordered by her thoracic oncology team. Assessment & Plan (04/09/2024 9:47 AM CDT): RUL and RLL 5mm nodules appear to be stable.Waxing and waning bilateral clustered nodules likley inflammatory or indolent infection. She is without new or worsening symptoms.There are no nodules which meet criteria for biopsy at this time. There are no symptoms requiring treament. We will monitor with CT scan this has been ordered by her thoracic oncology team. Assessment & Plan (10/03/2023 10:40 AM HOOP DRIVING MACHINE OPERATOR): RUL and RLL 5mm nodules appear to be stable.Waxing and waning bilateral clustered nodules. She is without new or worsening symptoms. Nodules appear to be small.There are no nodules which meet criteria for biopsy at this time. We will monitor with CT scan this has been ordered by her thoracic oncology team. Assessment & Plan (06/09/2023 1:04 PM CDT): RUL and RLL 5mm nodules appear to be stable.Stable clustered nodules and new bilateral clustered nodules. She is without new or worsening symptoms. Nodules appear to be small. We will monitor with CT scan in 3 months if nodules increase we will consider bronchoscopy for biopsy. She will call if symptoms arise. Chronic obstructive pulmonary disease 02/27/2023 Assessment & Plan (10/11/2024 1:03 PM HOOP DRIVING MACHINE OPERATOR): Severe obstructive defect noted on PFT. She is on maximal therapy. She remains asymptomatic without evidence of exacerbation. She will continue to take trelegy daily and use albuterol as needed. She has completed pulmonary rehab with resolution of shortness of breath. She will continue to remain active daily. We will check PFT in one year. She will call if there is a change in her symptoms. She and her daughter are in agreement. Assessment & Plan (04/09/2024 9:44 AM CDT): GOLD 2 A No evidence of exacerbation. Stable on Trelegy daily. She does not use albuterol with any regularity. RV dilation and shortness of breath are most likely secondary to severe COPD. Repeat PFT at next visit. Assessment & Plan (10/03/2023 10:35 AM HOOP DRIVING MACHINE OPERATOR): GOLD 2 A She has had significant improvement since taking Trelegy daily. She does not use albuterol with any regularity. RV dilation and shortness of breath are most likely secondary to severe COPD. She is without evidence of exacerbation. She will continue to use Trelegy daily and albuterol as needed. We will repeat PFT in one year. Assessment & Plan (06/09/2023 1:05 PM CDT): GOLD 3 A She has had significant improvement since taking Trelegy daily. She does not use albuterol with any regularity. RV dilation and shortness of breath are most likely secondary to severe COPD. She is without evidence of exacerbation. She will continue to use Trelegy daily and albuterol as needed. We will repeat PFT in 3 months. Assessment & Plan (02/27/2023 12:57 PM CDT): GOLD 3 A She has had significant improvement since taking Trelegy daily. She does not use albuterol with any regularity. RV dilation and shortness of breath are most likely secondary to severe COPD. She is without evidence of exacerbation. She will continue to use Trelegy daily and albuterol as needed. We will repeat PFT in 6 months. Hypoxia 02/27/2023 Assessment & Plan (10/11/2024 12:46 PM HOOP DRIVING MACHINE OPERATOR): Resolved on 6MWT. She has been encouraged to check O2 saturation during the day at rest and with activity. She will continue to wear O2 at night. Assessment & Plan (04/09/2024 9:45 AM CDT): Resolved. 6MWT does not demonstrate need for Oxygen at this time. She will continue to check oxygen saturation and use O2 at night. She is participating in pulmonary rehab. Assessment & Plan (10/03/2023 10:37 AM HOOP DRIVING MACHINE OPERATOR): 6MWT does not demonstrate need for Oxygen at this time. She will continue to check oxygen saturation and use O2 at night. 6MWT did demonstrate deconditioning. Assessment & Plan (06/09/2023 1:04 PM CDT): Likely secondary to severe untreated COPD. She was encouraged to check O2 sat while off O2 to check for hypoxia. She was encouraged to wear O2 if Sat <90%. She agrees to check O2 sat at rest and with exertion. We will check 6MWT at next visit in 3 months. Assessment & Plan (02/27/2023 1:19 PM CDT): Likely secondary to severe untreated COPD. She was encouraged to check O2 sat while off O2 to check for hypoxia. She was encouraged to wear O2 if Sat <90%. She agrees to check O2 sat at rest and with exertion. Solitary pulmonary nodule 01/17/2023 Encounters Date Type Department Care Team Description 10/08/2024 2:00 PM HOOP DRIVING MACHINE OPERATOR - 10/08/2024 11:59 PM HOOP DRIVING MACHINE OPERATOR Hospital Encounter MD [facility] - Pulmonology Lab [address] [place] [address] Myra Castellon APRN Chronic obstructive pulmonary disease, not otherwise specified Discharge Disposition: Home 10/08/2024 Travel 08/20/2024 10:30 AM CDT Follow-Up MD [facility] Medical [facility] [address] [place] [address] Ashley Concepcion MD Stephen, Stella, APRN Solitary pulmonary nodule (Primary Dx) 08/20/2024 7:15 AM CDT Ancillary Procedure [facility] Diagnostic Imaging at [facility] [address] [address], [address] [place] [address] Lalitha Melchor APRN Solitary pulmonary nodule 08/20/2024 Travel 04/16/2024 10:00 AM CDT Telemedicine MD [facility] - Thoracic Medicine [address] [place] [address] Ashley Concepcion MD Solitary pulmonary nodule (Primary Dx) 04/09/2024 8:30 AM CDT Follow-Up MD [facility] - Pulmonology [address] [facility] [place] [address] Myra Castellon APRN Chronic obstructive pulmonary disease, not otherwise specified 04/09/2024 6:25 AM CDT Ancillary Procedure [facility] Diagnostic Imaging at [facility] [address] [address], [address] [place] [address] Juwan Britton APRN Solitary pulmonary nodule 04/09/2024 Travel after 03/22/2024 Medical History Medical History Date Comments Hypertension Anxiety depression Neuropathy Uncomplicated mild intermittent asthma Memory loss Gastroesophageal reflux disease Osteoarthritis Arrhythmia Chronic obstructive pulmonary disease 02/27/2023 Social History Tobacco Use Types Packs/Day Years Used Date Smoking Tobacco: Former Cigarettes 0.5 2 1 995 - 1996 Smokeless Tobacco: Never Tobacco Cessation:Counseling Given: Not Answered Comments Unknown Sex and Gender Information Value Date Recorded Sex Assigned at Not on file Legal Sex Female 7:57 AM HOOP DRIVING MACHINE OPERATOR Gender Identity Not on file Sexual Orientation Not on file Obstetrics History Last Filed Vital Signs Vital Sign Reading Time Taken Comments Blood Pressure 131/73 08/20/2024 10:11 AM CDT Pulse 63 08/20/2024 10:11 AM CDT Temperature 36.7 °C (98.1 °F) 08/20/2024 10:11 AM C DT Respiratory Rate 18 08/20/2024 10:11 AM CDT Oxygen Saturation 93% 04/09/2024 8:26 AM CDT Inhaled Oxygen Concentration - - Weight 81.4 kg (179 lb 7.3 oz) 08/20/2024 10:11 AM CDT Height 164 cm (5' 4.57") 04/09/2024 8:26 AM CDT Body Mass Index 30.26 04/09/2024 8:26 AM CDT Plan of Treatment Upcoming Encounters Date Type Department Care Team (Late st Contact Info) Description 04/08/2025 6:50 AM CDT Ancillary Procedure [facility] [address], [address], [place] [address] Lalitha Melchor, MASTER POLICE DETECTIVE [address] [place] [address] [email or web address] 04/08/2025 8:30 AM CDT Follow-Up MD [facility] - Pulmonology [address] [place] [address] Myra Castellon, MASTER POLICE DETECTIVE [address] [place] [address] [email or web address] 04/08/2025 10:00 AM CDT Follow-Up MD [facility] - Thoracic Medicine [address] [place] [address] Ashley Concepcion MD [facility] [place] [address] [email or web address] Health Maintenance Due Date Last Done Comments Pneumococcal Vaccine: 50+ Years (1 of 2 - PCV) 959 COVID-19 Vaccine ( - season) 2024 Influenza Vaccine (Season Ended) 2025 Procedures Procedure Name Priority Date/Time Associated Diagnosis Comments SPIROMETRY W/O DILATORS, DLCO AND BODY PLETHSMOGRAPHIC LUNG VOLUMES Routine 10/08/2024 2:30 PM HOOP DRIVING MACHINE OPERATOR Chronic obstructive pulmonary disease, not otherwise specified CT CHEST W CONTRAST Routine 08/20/2024 8 :47 AM CDT Solitary pulmonary nodule POC CREATININE Routine 08/20/2024 8:[address] CHEST W CONTRAST Routine 04/09/2024 7 :31 AM CDT Solitary pulmonary nodule POC CREATININE Routine 04/09/2024 7:15 AM CDT after 03/22/2024 Results * (ABNORMAL) SPIROMETRY W/O DILATORS, DLCO AND BODY PLETHSMOGRAPHIC LUNG VOLUMES (10/08/2024 2:30 PM HOOP DRIVING MACHINE OPERATOR) [facility] FVC (L) pre 1.34(L) 1.70 - 3.31 L 10/08/2024 2:29 PM HOOP DRIVING MACHINE OPERATOR [facility] FEV1 (L) pre 0.93(L) 1.25 - 2.45 L 10/08/2024 2:29 PM HOOP DRIVING MACHINE OPERATOR [facility] FEV1/FVC (%) pre 69.20 63.45 - 88.74 % 10/08/2024 2:29 PM HOOP DRIVING MACHINE OPERATOR [facility] FEF 25-75 (L/s) pre 0.56 0.54 - 2.65 L/s 10/08/2024 2:29 PM HOOP DRIVING MACHINE OPERATOR [facility] DLCO UNADJ. SB_PRE 10.93(L) 13.27 - 24.17 ml/(min*mm Hg) 10/08/2024 2:29 PM HOOP DRIVING MACHINE OPERATOR [facility] DLCO PB adj. SB 10.98(L) 13.27 - 24.17 ml/(min*mm Hg) 10/08/2024 2:29 PM HOOP DRIVING MACHINE OPERATOR [facility] TLC (L) 4.50 3.79 - 6.14 L 10/08/2024 2:29 PM HOOP DRIVING MACHINE OPERATOR [facility] RV (L) 2.97 1.26 - 3.44 L 10/08/2024 2:29 PM HOOP DRIVING MACHINE OPERATOR [facility] RV/TLC (%) 66.04(H) 31.32 - 60.67 % 10/08/2024 2:29 PM HOOP DRIVING MACHINE OPERATOR [facility] FVC (% pred) pre 54 % 10/08/2024 2:29 PM HOOP DRIVING MACHINE OPERATOR [facility] FVC_PREZ-SCORE -2.42 10/08/2024 2:29 PM HOOP DRIVING MACHINE OPERATOR [facility] FEV1 (%pred) pre 49 % 10/08/2024 2:29 PM HOOP DRIVING MACHINE OPERATOR [facility] FEV1_PREZ-SCOR E -2.45 10/08/2024 2:29 PM HOOP DRIVING MACHINE OPERATOR [facility] FEV1/FVC (% pred) pre 89 % 10/08/2024 2:29 PM HOOP DRIVING MACHINE OPERATOR [facility] FEV1/FVC_PREZ- SCORE -1.02 10/08/2024 2:29 PM HOOP DRIVING MACHINE OPERATOR [facility] FEF 25-75 (% pred) pre 41 % 10/08/2024 2:29 PM HOOP DRIVING MACHINE OPERATOR [facility] NIS27-75%_PREZ -SCORE -1.59 10/08/2024 2:29 PM HOOP DRIVING MACHINE OPERATOR [facility] TLC (% pred) 92 % 10/08/2024 2:29 PM HOOP DRIVING MACHINE OPERATOR [facility] TLC_PREZ-SCORE -0.55 10/08/2024 2:29 PM HOOP DRIVING MACHINE OPERATOR [facility] RV (% pred) 136 % 10/08/2024 2:29 PM HOOP DRIVING MACHINE OPERATOR [facility] RV_PREZ-SCORE 1.08 10/08/2024 2:29 PM HOOP DRIVING MACHINE OPERATOR [facility] RVTLC_PRED 46 10/08/2024 2:29 PM HOOP DRIVING MACHINE OPERATOR [facility] RV%TLC_PREZ-SC ORE 2.21 10/08/2024 2:29 PM HOOP DRIVING MACHINE OPERATOR [facility] DLCO unadj. SB PRE% PRED 60 % 10/08/2024 2:29 PM HOOP DRIVING MACHINE OPERATOR [facility] DLCOUNADJUSTED SB_PREZ-SCORE -2.61 10/08/2024 2:29 PM HOOP DRIVING MACHINE OPERATOR [facility] DLCO PB adj. SB (% pred) 61 % 10/08/2024 2:29 PM HOOP DRIVING MACHINE OPERATOR [facility] DLCOPBADJUSTED SB_PREZ-SCORE -2.59 10/08/2024 2:29 PM HOOP DRIVING MACHINE OPERATOR [facility] 10/08/2024 2:09 PM HOOP DRIVING MACHINE OPERATOR us Myra Castellon APRN PFT ORDERABLES Final Result [facility] * CT Chest with Contrast (08/20/2024 8:47 AM CDT) Only the most recent of2 resultswithin the time period is included. Anatomical Region Laterality Modality Chest Computed Tomogra phy 08/20/2024 9:02 AM CDT Impressions 08/20/2024 10:28 AM CDT Continued presence of clustered bilateral predominantly peribronchiolar nodules a subset of which are stable while others have fluctuated slightly compared with the prior study. Several of the nodules demonstrate punctate foci of calcification as before. The findings are suggestive of chronic bronchiolitis which may be secondary to infection or aspiration. Persistent contrast opacification within the left atrial appendage beyond the atrial appendage occlusion device ACTIONABLE ITEMS/RECOMMENDATIONS*: See impression. *An Actionable Finding is a finding that may be unrelated to the original reason for imaging but potentially actionable, meaning further investigation may be necessary. The Actionable Findings Vigilance Unit (AFVU) assists medical providers with responding to additional radiologic findings that are unexpected and potentially actionable. Narrative 08/20/2024 10:28 AM CDT FULL RESULT: Examination: CT CHEST W CONTRAST on 08/20/2024 8:47 AM. Clinical History: Solitary pulmonary nodule Indication: Cancer staging or restaging Comparison: Chest CT dated 04/09/2024. Technique: CT of the chest is performed with intravenous contrast Findings: Lungs/Airways/Pleura: Central airways are patent. Stable left apical bandlike/nodular opacity on image 20 with punctate foci of calcification. Reidentified bilateral clustered peribronchiolar nodules a subset of which were present on the prior study and appear stable, for example in the left upper lobe on image 50 series 3 where there are occasional foci of calcification. Slight increase in peripheral tubular branching nodules in the right lower lobe on image 72. A solid nodule in the posterior segment of the right upper lobe measures 6 mm on image 36, stable. Clustered nodules in the lateral segment of the right middle lobe on image 70 have slightly fluctuated in morphology compared with the prior study. Neck/Mediastinum/Nodes/Heart: Multinodular thyroid gland. A Watchman device is present in the left atrial appendage. There is persistent contrast opacification of the left atrial appendage as seen on image 60 series 2. Mild coronary arterial calcifications. No pericardial effusion. Small hiatal hernia. No enlarged mediastinal or hilar lymph nodes. Upper abdomen: Limited images of the upper abdomen demonstrate no abnormality in the visualized spleen or adrenal glands. Mild central intrahepatic and extrahepatic biliary dilatation is stable. Stable hypoattenuating lesion in the left hepatic lobe measuring 1.4 cm with central calcification. An additional subcentimeter hypodensity at the hepatic dome on image 90 is unchanged. Bones/Soft Tissues: No suspicious lytic or blastic lesions. The bones are osteopenic. Procedure Note [id number] - 08/20/2024 FULL RESULT: Examination: CT CHEST W CONTRAST on 08/20/2024 8:47 AM. Clinical History: Solitary pulmonary nodule Indication: Cancer staging or restaging Comparison: Chest CT dated 04/09/2024. Technique: CT of the chest is performed with intravenous contrast Findings: Lungs/Airways/Pleura: Central airways are patent. Stable left apicalbandlike/nodular opacity on image 20 with punctate foci of calcification.Reidentified bilateral clustered peribronchiolar nodules a subset of whichwere present on the prior study and appear stable, for example in the leftupper lobe on image 50 series 3 where there are occasional foci ofcalcification. Slight increase in peripheral tubular branching nodules inthe right lower lobe on image 72. A solid nodule in the posterior segmentof the right upper lobe measures 6 mm on image 36, stable. Clusterednodules in the lateral segment of the right middle lobe on image 70 haveslightly fluctuated in morphology compared with the prior study. Neck/Mediastinum/Nodes/Heart: Multinodular thyroid gland. A Watchmandevice is present in the left atrial appendage. There is persistentcontrast opacification of the left atrial appendage as seen on image 60series 2. Mild coronary arterial calcifications. No pericardial effusion.Small hiatal hernia. No enlarged mediastinal or hilar lymph nodes. Upper abdomen: Limited images of the upper abdomen demonstrate noabnormality in the visualized spleen or adrenal glands. Mild centralintrahepatic and extrahepatic biliary dilatation is stable. Stablehypoattenuating lesion in the left hepatic lobe measuring 1.4 cm withcentral calcification. An additional subcentimeter hypodensity at thehepatic dome on image 90 is unchanged. Bones/Soft Tissues: No suspicious lytic or blastic lesions. The bones areosteopenic. IMPRESSION: Continued presence of clustered bilateral predominantly peribronchiolarnodules a subset of which are stable while others have fluctuated slightlycompared with the prior study. Several of the nodules demonstrate punctatefoci of calcification as before. The findings are suggestive of chronicbronchiolitis which may be secondary to infection or aspiration. Persistent contrast opacification within the left atrial appendage beyondthe atrial appendage occlusion device ACTIONABLE ITEMS/RECOMMENDATIONS*: See impression. *An Actionable Finding is a finding that may be unrelated to the originalreason for imaging but potentially actionable, meaning furtherinvestigation may be necessary. The Actionable Findings Vigilance Unit(AFVU) assists medical providers with responding to additional radiologicfindings that are unexpected and potentially actionable. Lalitha Melchor APRN [facility] ORDERABLES Final Resu lt * (ABNORMAL) POC Creatinine (08/20/2024 8:15 AM CDT) Only the most recent of2 resultswithin the time period is included. POC Creatinine 1.3 0.6 - 1.3 mg/dL 08/20/2024 8:16 AM CDT [facility] - DIAGNOSTIC IMAGING Comment:Medications, especia lly hydroxyurea or supplements, such as ascorbate, can interfere with test results causing a falsely and significantly higher result than expected. If a problem is suspected with a patient's result, a sample should be sent to the laboratory for confirmatory testing. POC eGFR 41(L) >=60 mL/min/1.7 3 sq. m 08/20/2024 8:16 AM CDT [facility] - DIAGNOSTIC IMAGING [facility] Comment: The eGFRcr is calculated with the 2020 CKD-EPI creatinine equation using creatinine, patient's age, and sex for adults 18 years of age and older. Other factors, especially muscle mass, may affect accuracy and need to be considered. According to the Kidney Disease: Improving Global Outcomes (KDIGO) CKD Work Group 2012 Clinical Practice Guideline, chronic kidney disease (CKD) is defined as the abnormalities of kidney structure or function, present for more than 3 months, with implications for health. CKD should be classified by cause, GFR category, and albuminuria category. KDIGO guidelines provide the following GFR categories. Stage / Description / GFR mL/min/1.73 m2: G1* / Normal or high / >= 90 G2* / Mildly decreased / 60-89 G3a / Mildly to moderately decreased / 45-59 G3b / Moderately to severely decreased / 30-44 G4 / Severely decreased / 15-29 G5 / Kidney failure / <15 *In the absence of evidence of kidney damage, neither G1 nor G2 fulfill criteria for CKD. Blood 08/20/2024 8:15 AM CDT 08/20/2024 8:16 AM CDT [facility] - DIAGNOSTIC IMAGING - 08/20/2024 8:16 AM CDT Method description: The i-STAT is an analyzer used for in vitro quantification of various analytes in whole blood. The device uses a single disposable cartridge which contains microfabricated sensors, a calibration solution, fluidics system, and a waste chamber. Each test cartridge contains chemically sensitive biosensors on a silicon chip that are configured to perform specific tests. The microfabricated sensors measure analyte concentration by an electrochemical assay. Lalitha Melchor APRN POCT ORDERABLES - DEVICE Fin al Result [facility] - DIAGNOSTIC IMAGING [facility] [address] [facility] [place], [address] [place] [address], after 03/22/2024 Insurance [employer] MEDICARE PPO [employer] MED[employer]ARE PPO Care Teams Enrollment Advisor Relationship Specialty Start Date End Date Ashley Concepcion MD [address] [place] [id number] [email or web address] PCP - General Medical Oncology 01/13/23 Nikki Reddy MD [address] [place] [id number] [email or web address] Consulting Physician Pulmonary Medicine 01/28/23 Kam Sharp MD [address] [place] [address] [place] [address] Internal Medicine 08/20/24 Alyssa Mcrae PA [address] [place] [email or web address] Physician [employer] Radiology 02/07/23
[2025-03-22 22:58] LABS: Absolute Eosinophils 0.1 K/uL (0-0.5); Absolute Lymphocytes (CBC) 0.7 K/uL (0.7-4.9); Absolute Monocytes 0.7 K/uL (0.1-1.3); Basophils % 0.5 % (0-1.3); Eosinophils % 0.9 % (0-4.4); Hematocrit 37.8 % (36.0-45.0); Hemoglobin 12.8 g/dL (12.0-15.0); Lymphocytes % 7.4 % (15.3-44.8); MCH 28.3 pg (27.0-35.0); MCHC 33.7 g/dL (32.0-36.0); MPV 8.4 fL (7.6-11.3); Neutrophils % 84.2 % (41.7-73.7); Nucleated Red Blood Cells % 0.1 % (0-0); Platelets 177 thou/uL (152-406)
[2025-03-22 23:01] LABS: PT Prothrombin Time 10.8 SECONDS (10-13.0); PTT, Activated Partial Thromb 27.6 SECONDS (27.2-37.4); Protime INR 0.94
[2025-03-22 23:10] LABS: AST/SGOT 25 U/L (15-37); Albumin/Globulin Ratio 1.1 (1.1-1.8); Alkaline Phosphatase 104 U/L (45-117); BUN Blood Urea Nitrogen 14 mg/dL (7-18); Bicarbonate 31 mEq/L (21-32); Bilirubin Total 0.6 mg/dL (0.2-1.0); Globulin 3.6 g/dL (2.3-3.5); Glomerular Filtration Rate 50 ml/min (=/>90); Glucose Level 112 mg/dL (74-106); NT PRO-BNP 171 pg/mL (<450); Protein, Total 7.6 g/dL (6.4-8.2); Sodium Level 138 mEq/L (136-145); Troponin High Sensitivity 11.2 pg/mL (<58.9)
[2025-03-22] MEDS ORDERED: ACETAMINOPHEN 500 MG TAB ONE (23:19)
[2025-03-22] MEDS ORDERED: VANCOMYCIN 1 GM/VIAL ONE (23:19)
[2025-03-22] MEDS ORDERED: IBUPROFEN 200 MG TAB PO ONE (23:19)
[2025-03-22] MEDS ORDERED: CEFEPIME 2 GM VIAL ONE (23:20)
[2025-03-22] MEDS ORDERED: NA CHLORIDE 0.9% 250 ML ONE (23:20)
[2025-03-22] MEDS ORDERED: DIAZEPAM 5 MG TABLET ONE (23:20)
[2025-03-22] MEDS ORDERED: IBUPROFEN 400 MG TAB ONE (23:20)
[2025-03-22] MEDS ORDERED: NA CHLORIDE 0.9% 100 ML ONE (23:21)
[2025-03-22] MEDS ORDERED: NA CHLORIDE 0.9% 1,000 ML ONE (23:21)
[2025-03-22 23:31] LABS: ALT/SGPT < 14 U/L (13-56)
[2025-03-23 00:02] LABS: Specific Gravity 1.014 (1.005-1.030); Sqamous Epithelial <5 /HPF (None Seen); Urine Bacteria None Seen /HPF (<20); Urine Bilirubin NEGATIVE (Negative); Urine Blood Negative (Negative); Urine Clarity Clear (Clear); Urine Color Light-Yellow (Yellow); Urine Glucose NEGATIVE (Negative); Urine Ketones NEGATIVE (Negative); Urine Micro Reflex YN NO BILL MICROSCOPIC; Urine Nitrite NEGATIVE (Negative); Urine Protein NEGATIVE (Negative); Urine RBC <5 /HPF (None Seen); Urine Urobilinogen Normal (Normal); Urine WBC <5 /HPF (<5); Urine pH 5.5 (5.0-7.0)
--- NOTE | 2025-03-23 01:22 | EDPHYS ---
Physician Documentation [facility] Name: Jo Dos Santos Age: 85 yrs Sex: Female : 1940 Arrival Date: 03/22/2025 Time: 21:58 Bed 5 Private MD: ED Physician Yoel Vanessa HPI: 03/22 22:07 This 85 yrs old Black Female presents to ER via Unassigned with complaints of Fever. sp4 03/23 20:22 Very pleasant 85-year-old female with past medical history of Parkinson's disease sp4 presents with acute onset of fever.. Historical: - PMHx: 03/22 22:19 DVT; GERD; High Cholesterol; Hypertension; km10 - Immunization history:: Adult Immunizations up to date. - Infectious Disease History:: Denies. - Social history:: Smoking status: Patient denies any tobacco usage or history of. - Family history:: not pertinent. ROS: 03/23 20:22 Constitutional: Positive fever, positive generalized weakness sp4 All other systems are negative, Exam: 20:22 Constitutional: This is a well nourished patient who is awake, alert, physically sp4 debilitated female with persistent resting tremor. Head/Face: Normocephalic, atraumatic. Eyes: Pupils equal round and reactive to light, extra-ocular motions intact. Lids and lashes normal. Conjunctiva and sclera are not injected. Cornea within normal limits. Periorbital areas with no swelling, redness, or edema. ENT: Nares patent. No nasal discharge, no septal abnormalities noted. Tympanic membranes are normal and external auditory canals are clear. Oropharynx with no redness, swelling, or masses, exudates, or evidence of obstruction, uvula midline. Mucous membranes moist. Neck: Trachea midline, no thyromegaly or masses palpated, and no cervical lymphadenopathy. Supple, full range of motion without nuchal rigidity, or vertebral point tenderness. Chest/axilla: Normal chest wall appearance and motion. Nontender with no deformity. No lesions are appreciated. Cardiovascular: Regular rate and rhythm with a normal S1 and S2. No gallops, murmurs, or rubs. Normal PMI, no JVD. No pulse deficits. Respiratory: Lungs have equal breath sounds bilaterally, clear to auscultation and percussion. No rales, rhonchi or wheezes noted. No increased work of breathing, no retractions or nasal flaring. Abdomen/GI: Soft, with normal bowel sounds. No distension or tympany. No guarding or rebound. No evidence of tenderness throughout. Back: No spinal tenderness. No costovertebral tenderness. Skin: Warm, dry with normal turgor. Normal color with no rashes, no lesions, and no evidence of cellulitis. MS/ Extremity: Pulses equal, no cyanosis. Neurovascular intact. Full, normal range of motion. Neuro: Awake and alert, GCS 15, oriented to person, place, time, and situation. Cranial nerves II-XII grossly intact. Motor strength 5/5 in all extremities. Sensory grossly intact. Psych: Awake, alert, with orientation to person, place and time. Behavior, mood, and affect are within normal limits Vital Signs: 03/22 22:11 BP 146 / 85; Pulse 78; Resp 20; Temp 102(O); Pulse Ox 95% ; km10 23:30 BP 137 / 96; Pulse 89; Resp 21; Pulse Ox 98% on R/A; kd3 03/23 00:36 BP 142 / 77; Pulse 60; Resp 16; Pulse Ox 98% on R/A; kd3 00:38 Temp 99.8(O); kd3 01:32 Weight 82.55 kg; Height 5 ft. 5 in. ; br2 02:01 BP 125 / 72; Pulse 55; Resp 14; Pulse Ox 96% on R/A; km10 01:32 Body Mass Index 30.29 (82.55 kg, 165.1 cm) br2 Greg Coma Score: 20:22 Eye Response: spontaneous(4). Motor Response: obeys commands(6). Verbal Response: sp4 oriented(5). Total: 15. MDM: 03/22 22:07 Medical Screening Exam initiated sp4 03/23 01:17 ED course: CLINICAL HISTORY: Eval for pneumonia. COMPARISON: XR Chest 03/22/2025, sp4 CTAbdomen Pelvis 08/03/2024 and CTA Chest 01/08/2023. TECHNIQUE: CT CHESTABDOMEN PELVIS WITHOUT IV CONTRAST on 03/22/2025 11:26 PM CDT This exam was performed according to our departmental dose-optimization program, which includes automated exposure control, adjustment of the mA and/or kV according to patient size and/or use of iterative reconstruction technique. FINDINGS: Chest: The heart is normal in size. There is an occlusion device in the left atrial appendage. There is no pericardial effusion. Intrathoracic lymph nodes are not enlarged. There is no pleural effusion, pleural thickening or pneumothorax. Central airways are patent. There is patchy airspace disease within the medial aspects of both lower lobes. There are scattered tree-in-bud nodules within the right middle lobe and periphery of the right lower lobe as well. Abdomen: The liver is normal in appearance. There is no biliary dilatation. Gallbladder is not seen. The pancreas and spleen are normal in appearance. The adrenal glands and kidneys are unremarkable. Abdominal aorta is normal in course and caliber without aneurysm. There is no free air. There is no retroperitoneal adenopathy. Pelvis: There is large amount of stool throughout the colon. Urinary bladder is unremarkable. There is no free fluid. Uterus is normal in size. Appendix is not clearly seen. Skeleton: There are no acute osseous findings. No suspicious bony lesions. IMPRESSION: Bilateral pneumonia. No definite acute inflammatory process in the abdomen or pelvis. . 20:24 ED course: Sepsis reevaluation completed. Patient could not be given full septic bolus sp4 of fluids secondary to her age and high probability of volume overload. Therefore 30 mL/kg septic fluid bolus was not administered. Patient was given broad range antibiotics.. 20:24 Differential diagnosis: viral Infection, bacterial infection, URI, bronchitis, sp4 pneumonia UTI, gastroenteritis. Data reviewed: vital signs, nurses notes, EMS record, old medical records, lab test result(s), EKG, radiologic studies, CT scan, plain films. 20:26 Consideration of Admission/Observation Patient was admitted/placed on observation. sp4 Escalation of care including admission/observation considered. Management of patient was discussed with the following: Hospitalist: Lv Molina MD . 03/22 22:06 Order name: Blood Culture Adult (2) sp4 03/22 22:06 Order name: CBC with Diff; Complete Time: 23:14 sp4 03/22 22:06 Order name: CMP; Complete Time: 01:14 sp4 03/22 22:06 Order name: Lactate w/ 2H reflex if indic.; Complete Time: 23:14 sp4 03/22 22:06 Order name: Protime (+inr); Complete Time: 23:14 4 03/22 22:06 Order name: Ptt, Activated; Complete Time: 23:14 4 03/22 22:06 Order name: UA W/ Microscopic; Complete Time: 01:14 [facility] 03/22 22:07 Order name: BNP; Complete Time: 01:14 [facility] 03/22 22:07 Order name: Troponin High Sensitivity; Complete Time: 01:14 [facility] 03/22 22:06 Order name: Chest Single View XRAY [facility] 03/22 23:26 Order name: CT Chest Abdomen Pelvis W/O Contrast [facility] 03/22 22:06 Order name: Accucheck; Complete Time: 23:30 [facility] 03/22 22:06 Order name: Cardiac monitoring; Complete Time: 23:30 [facility] 03/22 22:06 Order name: EKG - Nurse/Tech; Complete Time: 00:56 [facility] 03/22 22:06 Order name: IV Saline Lock - Large Bore; Complete Time: 23:30 [facility] 03/22 22:06 Order name: Labs collected and sent; Complete Time: 23:30 [facility] 03/22 22:06 Order name: O2 Per Protocol; Complete Time: 23:30 [facility] 03/22 22:06 Order name: O2 Sat Monitoring; Complete Time: 23:30 [facility] 03/22 22:06 Order name: Vital Signs; Complete Time: 23:30 4 Administered Medications: 03/22 23:29 Drug: Diazepam PO 5 mg PO once Route: PO; kd3 23:29 Drug: NS 0.9% IV 1000 ml IV at 1 bolus Per protocol; to be given as a bolus over 60 kd3 minutes Route: IV; Rate: 1 bolus; Site: right antecubital; 23:29 Drug: Cefepime IVPB 2 grams IVPB at 200 ml/hr once over 30 mins; (mix in NS 100 mL) kd3 Route: IVPB; Rate: 200 ml/hr; Infused Over: 30 mins; Site: right antecubital; 23:30 Drug: Acetaminophen PO 1000 mg PO once Route: PO; kd3 23:30 Drug: Ibuprofen PO 600 mg PO once Route: PO; kd3 23:44 Drug: vancoMYCIN IVPB 1 grams IVPB once over 2 hrs Route: IVPB; Infused Over: 2 hrs; kd3 Site: right antecubital; 03/23 02:44 Drug: NS 0.9% IV 1000 ml IV at 125 ml/hr Per protocol; to be given at 125 ml/hour kd3 Route: IV; Rate: 125 ml/hr; Site: right antecubital; Disposition: 20:24 Chart complete. sp4 Disposition Summary: 03/23/25 01:22 Hospitalization Ordered Notes: Hospitalization Status: Inpatient Admission sp4 Provider: Jesse Awan sp4 Location: Telemetry/[facility] (Inpatient) sp4 Condition: Stable sp4 Problem: new sp4 Symptoms: have improved sp4 Bed/Room Type: Standard sp4 Room Assignment: 218(03/23/25 01:36) vk Diagnosis - Other pneumonia, unspecified organism sp4 - Acute bilateral pneumonia, Acute febrile illness sp4 Forms: - Medication Reconciliation Form sp4 - SBAR form sp4 - Leadership Thank You Letter sp4 Signatures: Dispatcher [employer] EDRoma Jorgensen RN RN kd3 Yole Vanessa MD MD sp4 Tamy Mcdaniels Kirsten, RN RN km10 Corrections: (The following items were deleted from the chart) 03/22 22:06 22:06 BLOOD CULTURE*+BA.LAB.BRZ ordered. EDMS EDMS 22:06 22:06 CBC+H.LAB.BRZ ordered. EDMS EDMS 22:06 22:06 COMPREHENSIVE METABOLIC PANEL+C.LAB.BRZ ordered. EDMS EDMS 22:06 22:06 LACTATE+C.LAB.BRZ ordered. EDMS EDMS 22:06 22:06 PROTIME (+INR)+COAG.LAB.BRZ ordered. EDMS EDMS 22:06 22:06 PTT, ACTIVATED+COAG.LAB.BRZ ordered. EDMS EDMS 22:07 22:07 UA W/ Microscopic+U.LAB.BRZ ordered. EDMS EDMS 03/23 01:36 01:22 sp4 vk
--- NOTE | 2025-03-23 01:22 | ER ---
Nurse's Notes [facility] Name: Jo Dos Santos Age: 85 yrs Sex: Female : 1940 Arrival Date: 03/22/2025 Time: 21:58 Bed 5 Private MD: Diagnosis: Other pneumonia, unspecified organism;Acute bilateral pneumonia, Acute febrile illness Presentation: 03/22 22:11 Chief complaint: EMS states: fever, headache, increased tremors, denies pain. km10 Coronavirus screen: Client denies travel out of the [place] in the last 14 days. fever. Ebola Screen: No symptoms or risks identified at this time. Initial Sepsis Screen: Does the patient meet any 2 criteria? No. Patient's initial sepsis screen is negative. Does the patient have a suspected source of infection? No. Patient's initial sepsis screen is negative. Risk Assessment: Do you want to hurt yourself or someone else? Patient reports no desire to harm self or others. Onset of symptoms was March 22, 2025. Care prior to arrival: None. 22:11 Method Of Arrival: EMS km10 22:11 Acuity: RONALD 2 km10 Triage Assessment: 22:21 General: Appears in no apparent distress. tremors. Behavior is cooperative, appropriate km10 for age, Reports chills for fever for. Pain: Complains of pain in head Quality of pain is described as aching. Neuro: Level of Consciousness is awake, alert, obeys commands, Oriented to person, place, time, situation. Respiratory: Respiratory effort is even, unlabored, Respiratory pattern is regular. : Reports urinary frequency, Denies burning with urination. Historical: - PMHx: 22:19 DVT; GERD; High Cholesterol; Hypertension; km10 - Immunization history:: Adult Immunizations up to date. - Infectious Disease History:: Denies. - Social history:: Smoking status: Patient denies any tobacco usage or history of. - Family history:: not pertinent. Screenin:24 Abuse screen: Denies threats or abuse. Denies injuries from another. Nutritional km10 screening: No deficits noted. Tuberculosis screening: No symptoms or risk factors identified. 03/23 00:50 [facility] ED Fall Risk Assessment (Adult) Confusion or Disorientation No (0 pts) km10 Intoxicated or Sedated No (0 pts) Impaired Gait Yes (1 pt) Mobility Assist Device Used Yes (1 pt) Altered Elimination No (0 pt) Score/Fall Risk Level 0 - 2 = Low Risk Oriented to surroundings, Maintained a safe environment, Educated pt \T\ family on fall prevention, incl call for assistance when getting out of bed, Hourly rounding (assess needs \T\ fall precautionary measures) done. 00:52 [facility] ED Fall Risk Assessment (Adult) History of falling in the last 3 months, km10 including since admission No falls in past 3 months (0 pts). Assessment: 00:36 General: Appears in no apparent distress. Behavior is calm, cooperative. Neuro: Level kd3 of Consciousness is awake, alert, obeys commands, Oriented to person, place, time, situation. Cardiovascular: Patient's skin is warm and dry. Respiratory: Airway is patent Trachea midline Respiratory effort is even, unlabored, Respiratory pattern is regular, symmetrical. 02:01 Reassessment: Patient appears in no apparent distress at this time. km10 Vital Signs: 03/22 22:11 BP 146 / 85; Pulse 78; Resp 20; Temp 102(O); Pulse Ox 95% ; km10 23:30 BP 137 / 96; Pulse 89; Resp 21; Pulse Ox 98% on R/A; kd3 03/23 00:36 BP 142 / 77; Pulse 60; Resp 16; Pulse Ox 98% on R/A; kd3 00:38 Temp 99.8(O); kd3 01:32 Weight 82.55 kg; Height 5 ft. 5 in. ; br2 02:01 BP 125 / 72; Pulse 55; Resp 14; Pulse Ox 96% on R/A; km10 01:32 Body Mass Index 30.29 (82.55 kg, 165.1 cm) br2 Greg Coma Score: 20:22 Eye Response: spontaneous(4). Motor Response: obeys commands(6). Verbal Response: sp4 oriented(5). Total: 15. ED Course: 03/22 22:00 Patient arrived in ED. vk 22:05 Yoel Vanessa MD is Attending Physician. sp4 22:07 Roma Stauffer RN is Primary Nurse. kd3 22:19 Triage completed. km10 22:24 Arm band placed on right wrist. km10 22:38 Inserted saline lock: 20 gauge in right antecubital area, using aseptic technique. sa1 Blood collected. Flushed with 10 mL NS. 22:38 Initial lab(s) drawn, by me, sent to lab. First set of blood cultures drawn Urine sa1 collected: clean catch specimen, clear. 22:54 Chest Single View XRAY In Process Unspecified. EDMS 23:03 Second set of blood cultures drawn by me. sa1 23:30 Door closed. Noise minimized. Warm blanket given. Pillow given. km10 23:30 CMP Sent. kd3 23:30 Blood Culture Adult (2) Sent. kd3 03/23 00:10 CT Chest Abdomen Pelvis W/O Contrast In Process Unspecified. EDMS 00:21 Assisted with bedpan. sa1 00:51 Patient has correct armband on for positive identification. Bed in low position. Call km10 light in reach. Side rails up X2. Adult w/ patient. Provided Education on: plan of care. Client placed on continuous cardiac and pulse oximetry monitoring. NIBP monitoring applied. conveyor monitor on. 01:21 Jesse Awan MD is Hospitalizing Provider. sp4 Administered Medications: 03/22 23:29 Drug: Diazepam PO 5 mg PO once Route: PO; kd3 23:29 Drug: NS 0.9% IV 1000 ml IV at 1 bolus Per protocol; to be given as a bolus over 60 kd3 minutes Route: IV; Rate: 1 bolus; Site: right antecubital; 23:29 Drug: Cefepime IVPB 2 grams IVPB at 200 ml/hr once over 30 mins; (mix in NS 100 mL) kd3 Route: IVPB; Rate: 200 ml/hr; Infused Over: 30 mins; Site: right antecubital; 23:30 Drug: Acetaminophen PO 1000 mg PO once Route: PO; kd3 23:30 Drug: Ibuprofen PO 600 mg PO once Route: PO; kd3 23:44 Drug: vancoMYCIN IVPB 1 grams IVPB once over 2 hrs Route: IVPB; Infused Over: 2 hrs; kd3 Site: right antecubital; 03/23 02:44 Drug: NS 0.9% IV 1000 ml IV at 125 ml/hr Per protocol; to be given at 125 ml/hour kd3 Route: IV; Rate: 125 ml/hr; Site: right antecubital; Outcome: 01:22 Decision to Hospitalize by Provider. sp4 03:07 Patient left the ED. km10 Signatures: Dispatcher [employer] EDMS Roma Stauffer RN RN kd3 Yoel Vanessa MD MD sp4 Tamy Mcdaniels Sultan sa1 Riddle, Belinda RN RN br2 Evelyne Glass RN RN km10
[2025-03-23] MEDS ORDERED: ALPRAZOLAM 0.25 MG TABLET PO PRN (01:58)
[2025-03-23] MEDS ORDERED: ACETAMINOPHEN 325 MG TABLET PO PRN (01:58)
[2025-03-23] MEDS ORDERED: ALBUTEROL 2.5 MG/3 ML NEB SOL NEB PRN (01:58)
[2025-03-23] MEDS ORDERED: ONDANSETRON 4 MG/2 ML VIAL IV PRN (01:58)
[2025-03-23] MEDS ORDERED: IBUPROFEN 400 MG TAB PO PRN (01:58)
[2025-03-23] MEDS ORDERED: NA CHLORIDE 0.9% 1,000 ML ONE (02:41)
[2025-03-23] MEDS: D5 0.45 NS 1,000 ML IV SCH ×2 (03:11→07:08)
[2025-03-23 03:47] VITALS: BMI 30.2
--- NOTE | 2025-03-23 04:01 | RAD REPORT ---
CLINICAL HISTORY: Eval for pneumonia. COMPARISON: XR Chest 03/22/2025, CT Abdomen Pelvis 08/03/2024 and CTA Chest 01/08/2023. TECHNIQUE: CT CHEST ABDOMEN PELVIS WITHOUT IV CONTRAST on 03/22/2025 11:26 PM CDT This exam was performed according to our departmental dose-optimization program, which includes autom ated exposure control, adjustment of the mA and/or kV according to patient size and/or use of iterative reconstruction technique. FINDINGS: Chest: The heart is normal in size. There is an occlusion device in the left atrial appendage. There is no pericardial effusion. Intrathoracic lymph nodes are not enlarged. There is no pleural effusion, pleural thickening or pneumothorax. Central airways are patent. There i s patchy airspace disease within the medial aspects of both lower lobes. There are scattered tree-in-bud nodules within the right middle lobe and periphery of the right lower lobe as well. Abdomen: The liver is normal in appearance. There is no biliary dilatation. Gallbladder is not seen. The pancreas and spleen are normal in appearance. The adrenal glands and kidneys are unremarkable. Abdominal aorta is normal in course and caliber without aneurysm. There is no free air. There is no r etroperitoneal adenopathy. Pelvis: There is large amount of stool throughout the colon. Urinary bladder is unremarkable. There i s no free fluid. Uterus is normal in size. Appendix is not clearly seen. Skeleton: There are no acute osseous findings. No suspicious bony lesions. IMPRESSION: Bilateral pneumonia. No definite acute inflammatory process in the abdomen or pelvis. Electronically signed by: Adarsh Fierro MD 03/23/2025 01:01 AM CDT Due to temporary technical issues with the [employer] reporting system, reports are being debby d by the in-house radiologist without review as a courtesy to ensure prompt reporting the interpreting radiologist is fully responsible for the content of the report. Transcribed Date/Time: 03/23/2025 4:01 AM
[2025-03-23] MEDS: PANTOPRAZOLE 40MG TABLET PO SCH (05:10)
--- NOTE | 2025-03-23 06:12 | RAD REPORT ---
CLINICAL HISTORY: FEVER. COMPARISON: None. TECHNIQUE: Single view AP chest radiograph(s). FINDINGS: The lungs are clear. No pulmonary infiltrate or edema identified. No pleural effusion. No pneumotho rax. Nonenlarged cardiomediastinal silhouette. No significant osseous abnormality. IMPRESSION: No acute cardiopulmonary abnormality identified by radiograph. Electronically signed by: Gemma Thurston MD 03/22/2025 11:07 PM CDT RP Due to temporary technical issues with the PACS/[employer] reporting system, reports are being debby d by the in-house radiologist without review as a courtesy to ensure prompt reporting the interpreting radiologist is fully responsible for the content of the report. Transcribed Date/Time: 03/23/2025 6:11 AM
[2025-03-23] MEDS: CEFTRIAXONE 1,000 MG in NA CHLORIDE 0.9% 50 ML IVPB SCH (09:14)
[2025-03-23] MEDS: FAMOTIDINE 20 MG TAB PO SCH (09:14)
[2025-03-23] MEDS: ENOXAPARIN 40 MG/0.4 ML SQ SCH (09:14)
[2025-03-23] MEDS: ASPIRIN EC 81 MG TAB PO SCH (09:14)
[2025-03-23] MEDS: AMLODIPINE 10 MG TAB PO SCH (09:14)
[2025-03-23] MEDS: CARBIDOPA/LEVODOPA 25/100 TAB PO SCH (09:15)
[2025-03-23] MEDS: AZITHROMYCIN IV 500 MG in NA CHLORIDE 0.9% 250 ML IVPB SCH (10:42)
[2025-03-23] MEDS: GABAPENTIN 300 MG CAP PO SCH (20:12)
[2025-03-23] MEDS: ATORVASTATIN 40 MG TAB PO SCH (20:12)
[2025-03-23] MEDS: MUCINEX DM 12HR.SR TAB PO PRN (20:17)
--- NOTE | 2025-03-23 20:37 | HP ---
Date of Admission: 03/23/2025 Chief Complaint: Cough, congestion, and not feeling good. History Of Present Illness: An 85-year-old female patient, who started to have vague complaints of not feeling good yesterday evening and subsequently had some cough, congestion, and low-grade fever. She was brought into emergency room, where she was evaluated and further evaluation done in emergency room showed evidence of bilateral pneumonia and the patient was admitted to hospital. The patient received Valium in emergency room prior to getting her CAT scan which was chest, abdomen, and pelvis CAT scan in ER and ever since she got Valium, she has slept all throughout the night as reported by the patient's daughter this morning who was at bedside. No vomiting. No diarrhea. Allergies: NO KNOWN ALLERGIES. Medications: List reviewed. Review of Systems: Respiratory: As mentioned above. All other systems reviewed and negative. Past Surgical History: Watchman's procedure in April 2023, cholecystectomy, tubal ligation. Family History: Father , details unknown. Mother , had lung cancer. Daughter with breast cancer. Social History: Negative for smoking and alcohol use. Past Medical History: Significant for hypertension, osteoporosis, hyperlipidemia, pulmonary nodule, gastroesophageal reflux disease, anxiety, moderate persistent asthma, iron deficiency anemia, osteoarthritis at multiple sites, neuropathy, senile dementia, chronic atrial fibrillation, peripheral vascular disease, and sleep-related leg cramps. Physical Examination: Vital Signs: Height 5 feet 5 inches, weight 182 pounds. Temperature 98.1 with pulse 54, respiratory rate 18, blood pressure 111/64, oxygen saturation 96% on room air. Previous temperature was 99.8 degrees Fahrenheit. General: Awake, alert, oriented, not in distress. HEENT: Head atraumatic, normocephalic. Conjunctivae nonerythematous. Sclerae white. Mouth, no thrush or edema noted. Ears/Nose, no mass, lesion, discharge noted. Neck: Supple. No JVD, lymph nodes, bruit, thyromegaly noted. Lungs: Presence of rales in both lower lung nugent. Heart: Normal heart sounds, no murmur or gallop. Abdomen: Soft, bowel sounds normal. No guarding, rigidity, tenderness, mass, hepatosplenomegaly, distention, or bruit noted. Extremities: No leg edema. No calf tenderness. Skin: No rash, ulcer, cellulitis. Lymphatics: No lymph node enlargement in neck, supraclavicular, infraclavicular region. Neuro: No focal neurological deficit. Chest: Unremarkable. External Genitalia: Deferred. Rectal: Deferred. Laboratory Data: Sodium 138, potassium 4, chloride 105, bicarb 31, BUN 14, creatinine 1.09, glucose 112, lactic acid 1.6. Liver function tests unremarkable. Troponin 11.2, proBNP 171. WBC 9.5, hemoglobin 12.8, platelets 177. Urinalysis negative. CAT scan of chest, abdomen, pelvis shows bilateral pneumonia. Impression: 1. Pneumonia, community-acquired. 2. Chronic kidney disease stage IIIA. 3. Hypertension. 4. Hyperlipidemia. 5. Senile dementia. 6. Osteoarthritis, multiple sites. 7. Osteoporosis. 8. Generalized anxiety disorder. 9. Moderate persistent asthma. 10. Iron deficiency anemia. 11. Peripheral neuropathy. Plan: We will go ahead and admit the patient to hospital for further evaluation and management of this problem. The patient is appropriate for inpatient and is expected to spend 2 midnights in hospital. For her pneumonia, she received ceftriaxone and azithromycin in emergency room and we will continue that per order. Continue nebulizer treatment per order. DVT prophylaxis will be given using Lovenox per order. We will consult Physical Therapy to help ambulate the patient. For her hypertension, we will continue antihypertensive medication per order. Monitor blood pressure. If necessary, adjust medication. For hyperlipidemia, continue her statin therapy per order. No need for further intervention. For her asthma, we will continue inhaler as well as nebulizer treatment per order. No need for further intervention for her osteoarthritis or anemia problem at this time. Total time spent 75 minutes including review of last hospital admission record from 08/03/2024, communication with emergency room physician, review of emergency room visit record, and performing today's evaluation and management and review of last office visit record. I will see her tomorrow for followup. RENETTA/CRISTIN Voice ID: [id number] IMER
[2025-03-23 22:53] VITALS: O2SAT 92
[2025-03-24 06:32] LABS: Anion Gap 4.8 mEq/L (5.0-15.0); Potassium 3.8 mEq/L (3.5-5.1)
[2025-03-24 08:45] VITALS: BP 103/58
--- NOTE | 2025-03-24 08:48 | RAD REPORT ---
EXAMINATION: ONE VIEW CHEST XR CLINICAL INDICATION: Female, 85 years old.,pneumonia TECHNIQUE: Frontal chest projection is submitted. Examination is limited by patient positioning and t echnique. COMPARISON: 03/22/2025 FINDINGS: The lungs are well inflated. Central interstitial prominence and hazy bibasilar opacities. No pneumo thorax or sizable effusion. The heart is normal in size. Mediastinal contours are unchanged with atrial appendage occlusion device in place. IMPRESSION: Central interstitial prominence and hazy bibasilar opacities could reflect pneumonitis or changes of central congestion.
[2025-03-24 10:53] VITALS: TEMP 98.5
--- NOTE | 2025-03-25 12:29 | DS ---
Date of Discharge: 03/24/2025 Disposition: Discharged to go home. History: The patient was seen this morning for followup. She was lying in bed, not in distress. Physical Examination: Vital Signs: Reviewed. HEENT: Unremarkable. Lungs: Clear to auscultation. Heart: Sounds normal. Abdomen: Soft. Bowel sounds normal. No guarding, rigidity, tenderness, distention. Extremities: No leg edema. Discharge Medications And Instructions: 1. Continue all prior home medication. 2. Start following new medications and prescription was sent to her pharmacy at [facility] [place]: a. Azithromycin 250 mg take 1 tablet by mouth daily for 5 days. b. Cefuroxime 250 mg take 1 tablet by mouth 2 times a day for 7 days, take it with food. c. Follow up at my office next week. Hospital Course: This is an 85-year-old pleasant female patient who was brought into emergency room with cough, congestion, and not feeling good. The patient was admitted to the hospital. After she c immanuel to the hospital emergency room with above-mentioned complaints, she was admitted to the hospital with pneumonia in both lower lungs. The patient was started on antibiotic, which she responded very well. The patient started to ambulate well. Her appetite is good and no respiratory problems we hav e noted overnight. Today repeat chest x-ray was done, still showing pneumonia in the lower lung fiel ds, which we will continue to follow up on outpatient basis. Her lungs were clear to auscultation to day and she was not using any accessory muscles of respiration and not requiring any supplemental oxy gen. Overall, the patient's condition has improved and she was discharged to go home in stable condi tion with above-mentioned medication and instructions. Final Diagnoses: 1. Pneumonia, community-acquired. 2. Chronic kidney disease, stage 3A. 3. Hypertension. 4. Hyperlipidemia. 5. Senile dementia. 6. Osteoarthritis, multiple sites. 7. Osteoporosis. 8. Generalized anxiety disorder. 9. Moderate persistent asthma. 10. Iron-deficiency anemia. 11. Peripheral neuropathy. Total time spent 40 minutes. RENETTA/MODL Voice ID: [id number] Report ID: [id number]
--- NOTE | 2025-03-29 12:45 | EKG ---
Test Date: 2025-03-22 Test Time: 23:37:19 [employer] [employer] Supervisor: SAUL MEASUREMENT RESULTS: Intervals: Rate: 70 UT: 162 QRSD: 78 QT: 418 QTc: 451 Mcpherson: P: 73 UT: 162 QRS: 66 T: 55 INTERPRETIVE STATEMENTS: Normal sinus rhythm Normal ECG Compared to ECG 08/03/2024 12:20:02 T-wave abnormality no longer present Electronically Signed On 03-29-25 12:31:40 CDT by Luca Arzate
== END 2025-03-24 11:50 | disposition home or self-care (01) | DRG 195 ==
LOC: ER 21:58 → ERHOLD 03-23 01:25 → 2ND 03-23 02:37
PROVIDERS: ADMIT Internal Medicine; ATTEND Internal Medicine
DX: J18.9 Pneumonia, unspecified organism (principal); I10 Essential (primary) hypertension; E78.00 Pure hypercholesterolemia, unspecified; K21.9 Gastro-esophageal reflux disease without esophagitis; G20.A1 Parkinson's disease without dyskinesia, without mention of fluctuations; I12.9 Hypertensive chronic kidney disease with stage 1 through stage 4 chronic kidney disease, or unspecified chronic kidney disease; N18.31 Chronic kidney disease, stage 3a; D63.1 Anemia in chronic kidney disease; M19.09 Primary osteoarthritis, other specified site; M81.0 Age-related osteoporosis without current pathological fracture; F41.1 Generalized anxiety disorder; J45.40 Moderate persistent asthma, uncomplicated; G62.9 Polyneuropathy, unspecified; D50.9 Iron deficiency anemia, unspecified; F03.90 Unspecified dementia, unspecified severity, without behavioral disturbance, psychotic disturbance, mood disturbance, and anxiety; Z90.49 Acquired absence of other specified parts of digestive tract; Z86.718 Personal history of other venous thrombosis and embolism
CPT/HCPCS: 36415; 71045; 71250; 74176; 80048; 80053; 81001; 83605; 83880; 84484; 85025; 85610; 85730; 87040; 93005; 96374; 96375; 97116; 97161; 99285; J0456; J0692; J0696; J1650; J3370; J7030; J7050; J7799